=== PATIENT | female | born 1955 | race Caucasian/White ===

== ENCOUNTER → 2016-12-24 | Outpatient (CLI) | payer BC | LOC: OD 12:48 | PROVIDERS: ATTEND Physician Assistant | DX: J44.9 Chronic obstructive pulmonary disease, unspecified (principal) | CPT/HCPCS: 71020 ==

== ENCOUNTER 2017-07-21 15:37 | Inpatient (IN) | payer BC ==
[2017-07-21] MEDS ORDERED: METOCLOPRAMIDE HCL ORAL SOLN 10 MG/10 ML UDCUP PO ONE (17:12)
[2017-07-21] MEDS ORDERED: LIDOCAINE 2% VISCOUS SOLN 20 ML UDCUP PO ONE (17:12)
[2017-07-21] MEDS ORDERED: MAG HYDROX/AL HYDROX/SIMETH SUSP 30 ML UDCUP PO ONE (17:12)
--- NOTE | 2017-07-21 17:20 | ER Document Report ---
ED General - General Chief Complaint: Vomiting/Diarrhea Stated Complaint: VOMITING Time Seen by Provider: 07/21/17 17:10 Notes: This is a 61-year-old female patient presents emergency department chief complaint of having abdominal pain, vomiting, diarrhea with pain radiating up into her chest. Called her primary care doctor who advised her to come to the emergency department. Patient states that this all started yesterday. Noticed this morning when she vomited that it was black. Denies taking Pepto-Bismol. Usually she takes omeprazole and this helps with the reflux and burning epigastric pain but it did not help today. TRAVEL OUTSIDE OF THE [place] IN LAST 30 DAYS: No - Related Data Allergies/Adverse Reactions: codeine [Codeine] Allergy (Intermediate, Verified 10/03/15 11:24) PALE, UNABLE TO MOVE Penicillins Allergy (Intermediate, Verified 10/03/15 11:24) NAUSEA, VOMITING hydromorphone HCl [From Dilaudid] Allergy (Verified 11/22/14 09:12) nausea and itching Past Medical History - General Information source: Patient, Parent - Social History Smoking Status: Current Every Day Smoker Family History: Reviewed & Not Pertinent Patient has suicidal ideation: No Patient has homicidal ideation: No - Past Medical History Cardiac Medical History: Reports: Hx Heart Attack - QUESTIONABLE IRREGULAR HEARTBEAT VS MURMUR,EKG NEG, Hx Heart Murmur - HAD ECHO IN THE PAST IN 2013, EKG OBTAINED 04/2014 Denies: Hx Atrial Fibrillation, Hx Congestive Heart Failure, Hx Coronary Artery Disease, Hx Hypercholesterolemia, Hx Hypertension, Hx Peripheral Vascular Disease, Hx Pulmonary Embolism Pulmonary Medical History: Reports: Hx Asthma, Hx Bronchitis, Hx COPD Denies: Hx Pneumonia, Hx Respiratory Failure, Hx Sleep Apnea, Hx Tuberculosis Neurological Medical History: Denies: Hx Cerebrovascular Accident, Hx Seizures Renal/ Medical History: Denies: Hx Peritoneal Dialysis Malignancy Medical History: Denies: Hx Leukemia, Hx Lung Cancer GI Medical History: Reports: Hx Gastroesophageal Reflux Disease, Hx Hiatal Hernia - UNSURE. Denies: Hx Crohn's Disease, Hx Hepatitis, Hx Irritable Bowel, Hx Liver Failure, Hx Ulcer Musculoskeltal Medical History: Denies Hx Arthritis Psychiatric Medical History: Infectious Medical History: Denies: Hx Hepatitis, Hx HIV Past Surgical History: Reports: Hx Bowel Surgery - May 03. See old records., Hx Tonsillectomy - AGE 13. Denies: Hx Appendectomy, Hx Section, Hx Cholecystectomy, Hx Colostomy, Hx Coronary Artery Bypass Graft, Hx Gastric Bypass Surgery, Hx Herniorrhaphy, Hx Hysterectomy, Hx Mastectomy, Hx Open Heart Surgery, Hx Pacemaker, Hx Tubal Ligation - Immunizations Hx Diphtheria, Pertussis, Tetanus Vaccination: No Review of Systems - Review of Systems Constitutional: No symptoms reported EENT: No symptoms reported Cardiovascular: No symptoms reported, Chest pain Respiratory: No symptoms reported Gastrointestinal: No symptoms reported, Abdominal pain, Diarrhea, Nausea, Vomiting Genitourinary: No symptoms reported Female Genitourinary: No symptoms reported Musculoskeletal: No symptoms reported Skin: No symptoms reported Hematologic/Lymphatic: No symptoms reported Neurological/Psychological: No symptoms reported Physical Exam - Vital signs Vitals: Temp Pulse Resp BP Pulse Ox 99.0 F 83 18 102/77 96 07/21/17 16:00 07/21/17 16:00 07/21/17 16:00 07/21/17 16:00 07/21/17 16:00 Interpretation: Normal - General General appearance: Appears well, Alert - HEENT Head: Normocephalic, Atraumatic Eyes: Normal Pupils: PERRL - Respiratory Respiratory status: No respiratory distress Chest status: Nontender Breath sounds: Normal Chest palpation: Normal - Cardiovascular Rhythm: Regular Heart sounds: Normal auscultation Murmur: No Systolic murmur grade 1-6: 3 - Abdominal Inspection: Normal Distension: No distension Bowel sounds: Normal Tenderness: Nontender, Tender, Other - Mild diffuse abdominal tenderness Organomegaly: No organomegaly - Rectal Stool: Heme negative Hemorrhoids: None - Back Back: Normal, Nontender - Extremities General upper extremity: Normal inspection, Nontender, Normal color, Normal ROM , Normal temperature General lower extremity: Normal inspection, Nontender, Normal color, Normal ROM , Normal temperature, Normal weight bearing. No: Gurvinder's sign - Neurological Neuro grossly intact: Yes Cognition: Normal Orientation: AAOx4 [place] Coma Scale Eye Opening: Spontaneous Varsha Coma Scale Verbal: Oriented [place] Coma Scale Motor: Obeys Commands [place] Coma Scale Total: 15 Speech: Normal Motor strength normal: LUE, RUE, LLE, RLE Sensory: Normal - Psychological Associated symptoms: Normal affect, Normal mood - Skin Skin Temperature: Warm Skin Moisture: Dry Skin Color: Normal Course - Re-evaluation Re-evalutation: 07/21/17 18:40 This is a 61-year-old female with abdominal pain, vomiting with pain radiating up into her chest. Low-grade fever. Generally feeling ill. Patient seemed to have pain diffusely after initial evaluation. Now complaining of more pain in the right upper quadrant after CT scan has been ordered. We will ultrasound of the right upper quadrant as well as CT scan. Patient is drinking contrast at this time. Patient does have elevated CBC white count. Labs are pending at this time. 07/21/17 19:04 CT scan and ultrasound pending and at 1900 hrs. Patient signed over to Dr. Quijano for final disposition. - Vital Signs Vital signs: Temp Pulse Resp BP Pulse Ox 99.0 F 72 20 120/80 97 07/21/17 16:00 07/21/17 18:12 07/21/17 18:12 07/21/17 18:12 07/21/17 18:12 - Laboratory Result Diagrams: 07/21/17 17:47 07/21/17 17:47 Laboratory results interpreted by me: 07/21/17 07/21/17 07/21/17 17:30 17:47 17:47 WBC 16.1 H Absolute Neutrophils 12.2 H Absolute Monocytes 1.6 H Potassium 3.4 L Urine Protein 30 H Urine Glucose (UA) 150 H Urine Ketones 20 H Urine Urobilinogen 2.0 H Ur Leukocyte Esterase TRACE H - EKG Interpretation by Me EKG shows normal: Sinus rhythm, [place], Intervals, QRS Complexes, ST-T Waves Discharge - Discharge Referrals: SANDRA ALONZO MD [Primary Care Provider] - Follow up as needed
--- NOTE | 2017-07-21 17:37 | RADIOLOGY REPORT (SQ) ---
EXAM DESCRIPTION: CHEST SINGLE VIEW COMPLETED DATE/TIME: 07/21/2017 5:26 pm REASON FOR STUDY: sob COMPARISON: 12/24/2016 EXAM PARAMETERS: NUMBER OF VIEWS: One view. TECHNIQUE: Single frontal radiographic view of the chest acquired. RADIATION DOSE: NA LIMITATIONS: None. FINDINGS: LUNGS AND PLEURA: No opacities, masses or pneumothorax. No pleural effusion. MEDIASTINUM AND HILAR STRUCTURES: No masses. Contour normal. HEART AND VASCULAR STRUCTURES: Heart normal in size. Normal vasculature. BONES: No acute findings. HARDWARE: None in the chest. OTHER: No other significant finding. IMPRESSION: NO ACUTE RADIOGRAPHIC FINDING IN THE CHEST. TECHNICAL DOCUMENTATION: JOB ID: [id number]
[2017-07-21 18:04] LABS: APPEARANCE,URINE CLEAR; BILIRUBIN,URINE NEGATIVE (NEGATIVE); GLUCOSE, URINE 150 mg/dL (NEGATIVE); KETONES,URINE 20 mg/dL (NEGATIVE); LEUKOCYTE ESTERASE,URINE TRACE (NEGATIVE); NITRITE,URINE NEGATIVE (NEGATIVE); PROTEIN,URINE 30 mg/dL (NEGATIVE); URINE SPECIFIC GRAVITY 1.018
[2017-07-21 18:16] LABS: ABSOLUTE EOSINOPHILS # (AUTO) 0.1 10^3/uL (0.0-0.6); ABSOLUTE LYMPHOCYTES (AUTO) 2.2 10^3/uL (0.5-4.7); ABSOLUTE MONOCYTES (AUTO) 1.6 10^3/uL (0.1-1.4); ABSOLUTE NEUT (AUTO) 12.2 10^3/uL (1.7-8.2); BASOPHILS % (AUTO) 0.2 % (0-2); EOSINOPHILS % (AUTO) 0.4 % (0-6); HEMATOCRIT 40.8 % (36.0-47.0); HEMOGLOBIN 14.2 g/dL (12.0-15.5); HGB HCT DIFFERENCE 1.8; LYMPHOCYTES % (AUTO) 13.6 % (13-45); MEAN CORPUSCULAR HEMOGLOBIN 33.3 pg (27.0-33.4); MEAN CORPUSCULAR HGB CONC 34.8 g/dL (32.0-36.0); MEAN CORPUSCULAR VOLUME 96 fl (80-97); RED BLOOD COUNT 4.26 10^6/uL (3.72-5.28); RED CELL DISTRIBUTION WIDTH 12.7 % (11.5-14.0); SEGMENTED NEUTROPHILS % (AUTO) 75.8 % (42-78); WHITE BLOOD COUNT 16.1 10^3/uL (4.0-10.5)
[2017-07-21] MEDS ORDERED: FAMOTIDINE INJ/PF 20 MG/2 ML SDV IV ONE (18:29)
[2017-07-21] MEDS ORDERED: NORMAL SALINE 1000 ML 1,000 ML IV ONE (18:30)
[2017-07-21 18:37] LABS: ALANINE AMINOTRANSFERASE 32 U/L (9-52); ALBUMIN 4.5 g/dL (3.5-5.0); ALKALINE PHOSPHATASE 95 U/L (38-126); ANION GAP 16 (5-19); ASPARTATE AMINO TRANSFERASE 26 U/L (14-36); BILIRUBIN,DIRECT 0.4 mg/dL (0.0-0.4); BILIRUBIN,TOTAL 0.8 mg/dL (0.2-1.3); BLOOD UREA NITROGEN 15 mg/dL (7-20); CARBON DIOXIDE 29 mmol/L (22-30); CHLORIDE 99 mmol/L (98-107); CREATININE RESULT 0.72 mg/dL (0.52-1.25); GLUCOSE 103 mg/dL (75-110); LIPASE 175.7 U/L (23-300); POTASSIUM 3.4 mmol/L (3.6-5.0); SODIUM 143.5 mmol/L (137-145); TOTAL PROTEIN 7.1 g/dL (6.3-8.2)
[2017-07-21] MEDS ORDERED: MORPHINE SULFATE 10 MG/ML INJ IV ONE (18:39)
[2017-07-21] MEDS ORDERED: ONDANSETRON HCL INJ/PF 4 MG/2 ML SDV IV ONE (19:00)
--- NOTE | 2017-07-21 20:55 | RADIOLOGY REPORT (SQ) ---
EXAM DESCRIPTION: U/S ABDOMEN LIMITED W/O DOP COMPLETED DATE/TIME: 07/21/2017 8:43 pm REASON FOR STUDY: Right upper quadrant pain COMPARISON: None. TECHNIQUE: Dynamic and static grayscale images acquired of the abdomen and recorded on PACS. Additio nal selected color Doppler and spectral images recorded. LIMITATIONS: None. FINDINGS: PANCREAS: No masses. Visualized pancreatic duct normal caliber. LIVER: No masses. Echotexture normal. LIVER VASCULATURE: Normal directional flow of the main portal vein and hepatic veins. GALLBLADDER: Sludge. No gallbladder wall thickening. ULTRASOUND-DETECTED GTZ'S SIGN: Negative. INTRAHEPATIC DUCTS AND COMMON DUCT: CBD and intrahepatic ducts normal caliber. No filling defects. INFERIOR VENA CAVA: Normal flow. AORTA: Poorly seen. RIGHT KIDNEY: Normal size. Normal echogenicity. No solid or suspicious masses. No hydronephrosis. No calcifications. PERITONEAL AND RIGHT PLEURAL SPACE: Right effusion. OTHER: No other significant findings. IMPRESSION: Sludge in the gallbladder. Right pleural effusion. TECHNICAL DOCUMENTATION: JOB ID: [id number] [employer]- All Rights Reserved
--- NOTE | 2017-07-21 21:33 | RADIOLOGY REPORT (SQ) ---
EXAM DESCRIPTION: CT ABD/PELVIS WITH IV ORAL COMPLETED DATE/TIME: 07/21/2017 9:21 pm REASON FOR STUDY: abd pain COMPARISON: 05/19/2014 TECHNIQUE: CT scan of the abdomen and pelvis performed with intravenous and oral contrast using jerrica jiim scanning technique with dynamic intravenous contrast injection. Images reviewed with lung, soft t issue, and bone windows. Reconstructed coronal and sagittal MPR images reviewed. Delayed images for e valuation of the urinary system also acquired. All images stored on PACS. All CT scanners at this facility use dose modulation, iterative reconstruction, and/or weight based d osing when appropriate to reduce radiation dose to as low as reasonably achievable (ALARA). [facility]: Dose Right [facility]: CareDose [facility]: Dose Right [facility]: Teradose 4D [facility]: Achieved.co CONTRAST TYPE AND DOSE: contrast/concentration: Isovue 370.00 mg/ml; Total Contrast Delivered: 58.0 ml; Total Saline Delivered: 35.0 ml RENAL FUNCTION: GFR > 60. RADIATION DOSE: Up-to-date CT equipment and radiation dose reduction techniques were employed. CTDIv ol: 4.9 mGy. DLP: 495 mGy-cm. . LIMITATIONS: None. FINDINGS: LOWER CHEST: No significant findings. No nodules or infiltrates. No pleural effusion as s uspected on ultrasound appear LIVER: Normal size. No masses. No dilated ducts. SPLEEN: Normal size. No focal lesions. PANCREAS: No masses. No significant calcifications. No adjacent inflammation or peripancreatic fluid collections. Pancreatic duct not dilated. GALLBLADDER: No identified stones by CT criteria. No inflammatory changes to suggest cholecystitis. ADRENAL GLANDS: No significant masses or asymmetry. RIGHT KIDNEY AND URETER: No solid masses. No significant calcifications. No hydronephrosis or hyd roureter. LEFT KIDNEY AND URETER: No solid masses. No significant calcifications. No hydronephrosis or hydr oureter. AORTA AND VESSELS: No aneurysm. No dissection. Renal arteries, SMA, celiac without stenosis. RETROPERITONEUM: No retroperitoneal adenopathy, hemorrhage or masses. BOWEL AND PERITONEAL CAVITY: No obstruction. No visualized masses. No free fluid. No inflammatory ch anges or thickening of bowel wall. APPENDIX: Surgically absent. PELVIS: No significant masses. Normal bladder. No free fluid. ABDOMINAL WALL: No masses. No hernias. BONES: No significant or acute findings. OTHER: No other significant finding. IMPRESSION: NO SIGNIFICANT OR ACUTE FINDINGS IN THE ABDOMEN OR PELVIS. TECHNICAL DOCUMENTATION: JOB ID: [id number] Quality ID # [id number]: Final reports with documentation of one or more dose reduction techniques (e.g., Au tomated exposure control, adjustment of the mA and/or kV according to patient size, use of iterative reconstruction technique) 2010 [employer]- All Rights Reserved
[2017-07-21] MEDS ORDERED: IPRATROPIUM/ALBUTEROL 0.5-2.5 MG/3 ML AMPUL NEB PRN (23:02)
[2017-07-21] MEDS ORDERED: LEVOFLOXACIN 500 MG/D5W RTU 500 MG/100 ML RTUPB IV ONE (23:07)
[2017-07-22 00:22] LABS: CREATINE KINASE MB 2.49 ng/mL (<4.55)
[2017-07-22 00:26] LABS: TROPONIN I < 0.012 ng/mL
[2017-07-22] MEDS: ACETAMINOPHEN 325 MG TABLET PO PRN (03:37)
[2017-07-22] MEDS: ONDANSETRON HCL INJ/PF 4 MG/2 ML SDV IV PRN (03:37)
--- NOTE | 2017-07-22 07:02 | PDOC H&P ---
History of Present Illness Admission Date/PCP: 07/21/17 23:02 SANDRA PRITCHETT MD Patient complains of: Abdominal pain nausea vomiting History of Present Illness: JIHAN VAUGHN is a 61 year old female with acute onset abdominal pain, nausea vomiting and diarrhea 3 days ago after [facility] which is her usual Friday afternoon meal. She became weak, with persisting diarrhea over the next 48 hours. The patient sought medical care with Dr. Pritchett who sent her to the emergency department where she underwent CT scan of the abdomen and pelvis which was fairly unremarkable. She then had a bladder ultrasound which showed sludge; trace right pleural effusion was noted. She was simultaneously ruled out for an acute cardiovascular and pulmonary event. She will CPK was elevated. She was admitted overnight for observation and rehydration. Surgery was consulted. Past Medical History Cardiac Medical History: Reports: Myocardial Infarction - QUESTIONABLE IRREGULAR HEARTBEAT VS MURMUR,EKG NEG, Heart Murmur - HAD ECHO IN THE PAST IN 2013, EKG OBTAINED 04/2014 Denies: Atrial Fibrillation, Congestive Heart Failure, Coronary Artery Disease, Hyperlipidema, Hypertension, Peripheral Vascular Disease, Pulmonary Embolism Pulmonary Medical History: Reports: Asthma, Bronchitis, Chronic Obstructive Pulmonary Disease (COPD) Denies: Pneumonia, Respiratory Failure, Sleep Apnea, Tuberculosis Neurological Medical History: Denies: Seizures Malignancy Medical History: Denies: Leukemia, Lung Cancer GI Medical History: Reports: Gastroesophageal Reflux Disease, Hiatal Hernia - UNSURE Denies: Crohn's Disease, Hepatitis Musculoskeltal Medical History: Denies: Arthritis Psychiatric Medical History: Denies: Depression Hematology: Reports: Anemia Denies: Hemophilia, Sickle Cell Disease Infectious Medical History: Denies: HIV Past Surgical History Past Surgical History: Reports: Tonsillectomy - AGE 13, Other - Right hemicolectomy, Dr. Mendez, 2013: Pilonidal cystectomy: Nasal septum terri Denies: Amputation, Appendectomy, Section, Cholecystectomy, Colostomy, Coronary Artery Bypass Graft, Gastric Bypass Surgery, Herniorrhaphy, Hysterectomy, Mastectomy, Pacemaker, Tubal Ligation Social History Smoking Status: Current Every Day Smoker Cigarettes Packs Per Day: 2 Last Time Smoked: July 19, 2017 Frequency of Alcohol Use: None Hx Recreational Drug Use: No Drugs: None Hx Prescription Drug Abuse: No Family History Family History: Reviewed & Not Pertinent Parental Family History Reviewed: Yes Children Family History Reviewed: Yes Sibling(s) Family History Reviewed.: Yes Medication/Allergy Home Medications: Tiotropium [employer] [Spiriva Handihaler 18 mcg/dose (30 Dose)] 1 cap IH DAILY Budesonide/Formoterol Fumarate [Symbicort HFA 160-4.5 mcg Inhaler 6 gm] 2 puff IH Q12 02/23/14 Albuterol Sulfate [Albuterol Sulfate Hfa] 1 - 2 puff IH Q4 PRN 11/18/14 Esomeprazole Magnesium [Nexium] 40 mg PO DAILY 11/18/14 Ibuprofen 2 tab PO ASDIR PRN 10/03/15 Allergies/Adverse Reactions: codeine [Codeine] Allergy (Intermediate, Verified 10/03/15 11:24) PALE, UNABLE TO MOVE Penicillins Allergy (Intermediate, Verified 10/03/15 11:24) NAUSEA, VOMITING hydromorphone HCl [From Dilaudid] Allergy (Verified 11/22/14 09:12) nausea and itching Review of Systems Constitutional: PRESENT: as per HPI Eyes: ABSENT: visual disturbances Ears: ABSENT: hearing changes Cardiovascular: PRESENT: other - Has had epigastric chest pain Gastrointestinal: PRESENT: other - Last colonoscopy within the past year, surveillance, Dr. Varela, normal Integumentary: ABSENT: rash, wounds Neurological: ABSENT: abnormal gait, abnormal speech, confusion, dizziness, focal weakness, syncope Physical Exam Vital Signs: Temp Pulse Resp BP Pulse Ox 98.5 F 58 L 17 99/61 L 88 L 07/22/17 05:08 07/22/17 05:08 07/22/17 03:27 07/22/17 05:08 07/22/17 05:08 Intake & Output 07/20/17 07/21/17 07/22/17 06:59 06:59 06:59 Weight 56 kg General appearance: PRESENT: no acute distress Head exam: PRESENT: normocephalic Eye exam: PRESENT: EOMI Ear exam: PRESENT: TM's normal bilaterally Mouth exam: PRESENT: dry mucosa Neck exam: PRESENT: full ROM Respiratory exam: PRESENT: clear to auscultation be Cardiovascular exam: PRESENT: RRR Pulses: PRESENT: +2 pedal pulses bilateral GI/Abdominal exam: PRESENT: other - Abdomen is soft, nontender no peritoneal signs no rigidity no organomegaly Rectal exam: PRESENT: deferred Extremities exam: PRESENT: full ROM Musculoskeletal exam: PRESENT: full ROM Neurological exam: PRESENT: alert, awake, oriented to person, oriented to place Psychiatric exam: PRESENT: anxious Results Laboratory Results: 07/21/17 07/21/17 23:41 23:41 Creatine Kinase 223 H CK-MB (CK-2) 2.49 Troponin I < 0.012 Impressions: Abdomen/Pelvis CT 07/21/17 00:00 IMPRESSION: NO SIGNIFICANT OR ACUTE FINDINGS IN THE ABDOMEN OR PELVIS. Chest X-Ray 07/21/17 17:13 IMPRESSION: NO ACUTE RADIOGRAPHIC FINDING IN THE CHEST. Abdomen Ultrasound 07/21/17 18:41 IMPRESSION: Sludge in the gallbladder. Right pleural effusion. Assessment & Plan - Diagnosis (1) Abdominal pain Is this a current diagnosis for this admission?: Yes Plan: Associated with diarrhea nausea and vomiting; resultant diarrhea, leukocytosis ketonuria. Patient being rehydrated. Suspect principal problem is viral gastroenteritis. Recommend current workup and treatment (2) Sludge in gallbladder Is this a current diagnosis for this admission?: Yes Plan: Likely incidental finding; no evidence of cholecystitis. At this point I do not think patient needs interval cholecystectomy. We will follow with you clinically. (3) Diarrhea Is this a current diagnosis for this admission?: Yes - Time Time Spent: 30 to 50 Minutes Smoking Cessation Education: 3 to 10 minutes - Inpatient Certification Medical Necessity: Need For IV Fluids, Need for IV Antibiotics
[2017-07-22] MEDS: LANSOPRAZOLE 15 MG TAB.RAP.DR PO SCH (07:05)
[2017-07-22] MEDS: NORMAL SALINE 1000 ML 1,000 ML IV PRN (07:07)
[2017-07-22 07:10] LABS: ABSOLUTE EOSINOPHILS # (AUTO) 0.1 10^3/uL (0.0-0.6); ABSOLUTE LYMPHOCYTES (AUTO) 2.3 10^3/uL (0.5-4.7); ABSOLUTE MONOCYTES (AUTO) 1.2 10^3/uL (0.1-1.4); ABSOLUTE NEUT (AUTO) 8.3 10^3/uL (1.7-8.2); BASOPHILS % (AUTO) 0.3 % (0-2); EOSINOPHILS % (AUTO) 0.9 % (0-6); HEMATOCRIT 36.7 % (36.0-47.0); HEMOGLOBIN 12.8 g/dL (12.0-15.5); HGB HCT DIFFERENCE 1.7; LYMPHOCYTES % (AUTO) 19.1 % (13-45); MEAN CORPUSCULAR HEMOGLOBIN 33.6 pg (27.0-33.4); MEAN CORPUSCULAR HGB CONC 34.9 g/dL (32.0-36.0); MEAN CORPUSCULAR VOLUME 96 fl (80-97); MONOCYTES % (AUTO) 10.4 % (3-13); RED BLOOD COUNT 3.82 10^6/uL (3.72-5.28); SEGMENTED NEUTROPHILS % (AUTO) 69.3 % (42-78); WHITE BLOOD COUNT 11.9 10^3/uL (4.0-10.5)
[2017-07-22 07:29] LABS: ALANINE AMINOTRANSFERASE 36 U/L (9-52); ALBUMIN 3.8 g/dL (3.5-5.0); ALKALINE PHOSPHATASE 64 U/L (38-126); ANION GAP 13 (5-19); ASPARTATE AMINO TRANSFERASE 23 U/L (14-36); BILIRUBIN,DIRECT 0.4 mg/dL (0.0-0.4); BILIRUBIN,TOTAL 0.7 mg/dL (0.2-1.3); BLOOD UREA NITROGEN 10 mg/dL (7-20); CALCIUM 9.4 mg/dL (8.4-10.2); CARBON DIOXIDE 27 mmol/L (22-30); CHLORIDE 102 mmol/L (98-107); CREATINE KINASE 229 U/L (30-135); CREATININE RESULT 0.67 mg/dL (0.52-1.25); GLUCOSE 103 mg/dL (75-110); POTASSIUM 3.2 mmol/L (3.6-5.0); SODIUM 142.2 mmol/L (137-145)
[2017-07-22 07:40] LABS: CREATINE KINASE MB 2.87 ng/mL (<4.55)
[2017-07-22 07:42] LABS: TROPONIN I < 0.012 ng/mL
--- NOTE | 2017-07-22 08:15 | EKG REPORT ---
SEVERITY:- NORMAL ECG - SINUS RHYTHM : Confirmed by: Juan Osorio MD 22-Jul-2017 08:13:48
[2017-07-22] MEDS ORDERED: POTASSIUM CHLORIDE 10 MEQ TABLET.SA PO ONE (08:45)
[2017-07-22] MEDS: ENOXAPARIN SODIUM INJ 40 MG/0.4 ML DISP.SYRIN SUBCUT SCH (09:02)
[2017-07-22] MEDS: MAG HYDROX/AL HYDROX/SIMETH SUSP 30 ML UDCUP PO PRN ×2 (12:48→18:29)
--- NOTE | 2017-07-22 13:45 | PDOC H&P ---
History of Present Illness Admission Date/PCP: 07/21/17 23:02 SANDRA PRITCHETT MD Patient complains of: Abdominal pain and nausea and vomiting History of Present Illness: JIHAN VAUGHN is a 61 year old female with acute onset abdominal pain, nausea vomiting and diarrhea 3 days ago after having a tuna sandwich from [facility] which is her usual Friday afternoon meal. She became weak, with persisting diarrhea over the next 48 hours. The patient sought medical care with Dr. Pritchett who sent her to the emergency department where she underwent CT scan of the abdomen and pelvis which was fairly unremarkable. She then had a bladder ultrasound which showed sludge; trace right pleural effusion was noted. She was simultaneously ruled out for an acute cardiovascular and pulmonary event. She will CPK was elevated. She was admitted overnight for observation and rehydration. Patient initially came in the office with a complaint of at this epigastric pain and right upper quadrant pain to and patient have a history of abdominal pain in the past Patient also have a colonoscopy was done last year by Dr. Varela Past Medical History Cardiac Medical History: Reports: Myocardial Infarction - QUESTIONABLE IRREGULAR HEARTBEAT VS MURMUR,EKG NEG, Heart Murmur - HAD ECHO IN THE PAST IN 2013, EKG OBTAINED 04/2014 Denies: Atrial Fibrillation, Congestive Heart Failure, Coronary Artery Disease, Hyperlipidema, Hypertension, Peripheral Vascular Disease, Pulmonary Embolism Pulmonary Medical History: Reports: Asthma, Bronchitis, Chronic Obstructive Pulmonary Disease (COPD) Denies: Pneumonia, Respiratory Failure, Sleep Apnea, Tuberculosis Neurological Medical History: Denies: Seizures Malignancy Medical History: Denies: Leukemia, Lung Cancer GI Medical History: Reports: Gastroesophageal Reflux Disease, Hiatal Hernia - UNSURE Denies: Crohn's Disease, Hepatitis Musculoskeltal Medical History: Denies: Arthritis Psychiatric Medical History: Denies: Depression Hematology: Reports: Anemia Denies: Hemophilia, Sickle Cell Disease Infectious Medical History: Denies: HIV Past Surgical History Past Surgical History: Reports: Tonsillectomy - AGE 13, Other - Right hemicolectomy, Dr. Mendez, 2013: Pilonidal cystectomy: Nasal septum terri Denies: Amputation, Appendectomy, Section, Cholecystectomy, Colostomy, Coronary Artery Bypass Graft, Gastric Bypass Surgery, Herniorrhaphy, Hysterectomy, Mastectomy, Pacemaker, Tubal Ligation Social History Smoking Status: Current Every Day Smoker Cigarettes Packs Per Day: 2 Last Time Smoked: July 19, 2017 Frequency of Alcohol Use: None Hx Recreational Drug Use: No Drugs: None Hx Prescription Drug Abuse: No Family History Family History: Reviewed & Not Pertinent Parental Family History Reviewed: Yes Children Family History Reviewed: Yes Sibling(s) Family History Reviewed.: Yes Medication/Allergy Home Medications: Ibuprofen [Ibuprofen Ib] 400 mg PO ASDIR PRN 07/22/17 Omeprazole 20 mg PO DAILY 07/22/17 Allergies/Adverse Reactions: codeine [Codeine] Allergy (Intermediate, Verified 10/03/15 11:24) PALE, UNABLE TO MOVE Penicillins Allergy (Intermediate, Verified 10/03/15 11:24) NAUSEA, VOMITING hydromorphone HCl [From Dilaudid] Allergy (Verified 11/22/14 09:12) nausea and itching Review of Systems Constitutional: ABSENT: chills, fever(s), headache(s), weight gain, weight loss Eyes: ABSENT: visual disturbances Ears: ABSENT: hearing changes Cardiovascular: ABSENT: chest pain, dyspnea on exertion, edema, orthropnea, palpitations Respiratory: ABSENT: cough, hemoptysis Gastrointestinal: PRESENT: abdominal pain, coffee ground emesis, diarrhea, nausea, vomiting. ABSENT: constipation, hematemesis, hematochezia Genitourinary: ABSENT: dysuria, hematuria Musculoskeletal: ABSENT: joint swelling Integumentary: ABSENT: rash, wounds Neurological: ABSENT: abnormal gait, abnormal speech, confusion, dizziness, focal weakness, syncope Psychiatric: ABSENT: anxiety, depression, homidical ideation, suicidal ideation Endocrine: ABSENT: cold intolerance, heat intolerance, menstrual abnormalities, polydipsia, polyuria Hematologic/Lymphatic: ABSENT: easy bleeding, easy bruising, lymphadenopathy Physical Exam Vital Signs: Temp Pulse Resp BP Pulse Ox 97.9 F 60 18 118/61 96 07/22/17 11:58 07/22/17 11:58 07/22/17 11:58 07/22/17 11:58 07/22/17 11:58 Intake & Output 07/21/17 07/22/17 07/23/17 06:59 06:59 06:59 Intake Total 150 237 Balance 150 237 Weight 56 kg General appearance: PRESENT: no acute distress, well-developed, well-nourished Head exam: PRESENT: atraumatic, normocephalic Eye exam: PRESENT: conjunctiva pink, EOMI, PERRLA. ABSENT: scleral icterus Ear exam: PRESENT: normal external ear exam Mouth exam: PRESENT: moist, tongue midline Neck exam: PRESENT: full ROM. ABSENT: carotid bruit, JVD, lymphadenopathy, thyromegaly Respiratory exam: PRESENT: clear to auscultation be Cardiovascular exam: PRESENT: RRR. ABSENT: diastolic murmur, rubs, systolic murmur Pulses: PRESENT: normal dorsalis pedis pul, +2 pedal pulses bilateral Vascular exam: PRESENT: normal capillary refill GI/Abdominal exam: PRESENT: normal bowel sounds, soft. ABSENT: distended, guarding, mass, organolmegaly, rebound, tenderness Rectal exam: PRESENT: deferred Extremities exam: ABSENT: pedal edema Musculoskeletal exam: PRESENT: ambulatory Neurological exam: PRESENT: alert, awake, oriented to person, oriented to place , oriented to time, oriented to situation, CN II-XII grossly intact. ABSENT: motor sensory deficit Psychiatric exam: PRESENT: appropriate affect, normal mood. ABSENT: homicidal ideation, suicidal ideation Skin exam: PRESENT: dry, intact, warm. ABSENT: cyanosis, rash Results Laboratory Results: 07/22/17 06:27 07/22/17 06:27 07/22/17 07/22/17 07/22/17 06:27 06:27 08:27 WBC 11.9 H RBC 3.82 Hgb 12.8 Hct 36.7 MCV 96 MCH 33.6 H MCHC 34.9 RDW 13.0 Plt Count 275 Seg Neutrophils % 69.3 Lymphocytes % 19.1 Monocytes % 10.4 Eosinophils % 0.9 Basophils % 0.3 Absolute Neutrophils 8.3 H Absolute Lymphocytes 2.3 Absolute Monocytes 1.2 Absolute Eosinophils 0.1 Absolute Basophils 0.0 Sodium 142.2 Potassium 3.2 L Chloride 102 Carbon Dioxide 27 Anion Gap 13 BUN 10 Creatinine 0.67 Est GFR ( Amer) > 60 Est GFR (Non-Af Amer) > 60 Glucose 103 Calcium 9.4 Total Bilirubin 0.7 AST 23 ALT 36 Alkaline Phosphatase 64 Total Protein 6.0 L Albumin 3.8 Stool Occult Blood POSITIVE Stool for White Cells 07/22/17 08:27 WBC RBC Hgb Hct MCV MCH MCHC RDW Plt Count Seg Neutrophils % Lymphocytes % Monocytes % Eosinophils % Basophils % Absolute Neutrophils Absolute Lymphocytes Absolute Monocytes Absolute Eosinophils Absolute Basophils Sodium Potassium Chloride Carbon Dioxide Anion Gap BUN Creatinine Est GFR ( Amer) Est GFR (Non-Af Amer) Glucose Calcium Total Bilirubin AST ALT Alkaline Phosphatase Total Protein Albumin Stool Occult Blood Stool for White Cells NO WBCs SEEN 07/21/17 07/21/17 07/22/17 23:41 23:41 06:27 Creatine Kinase 223 H 229 H CK-MB (CK-2) 2.49 Troponin I < 0.012 07/22/17 06:27 Creatine Kinase CK-MB (CK-2) 2.87 Troponin I < 0.012 Impressions: Abdomen/Pelvis CT 07/21/17 00:00 IMPRESSION: NO SIGNIFICANT OR ACUTE FINDINGS IN THE ABDOMEN OR PELVIS. Chest X-Ray 07/21/17 17:13 IMPRESSION: NO ACUTE RADIOGRAPHIC FINDING IN THE CHEST. Abdomen Ultrasound 07/21/17 18:41 IMPRESSION: Sludge in the gallbladder. Right pleural effusion. Assessment & Plan - Diagnosis (1) Diarrhea Qualifiers: Diarrhea type: unspecified type Qualified Code(s): R19.7 - Diarrhea, unspecified Is this a current diagnosis for this admission?: Yes Plan: Will check for the stool for the C. difficile and culture and (2) Sludge in gallbladder Is this a current diagnosis for this admission?: Yes Plan: Follow with the general surgery (3) Abdominal pain Qualifiers: Abdominal location: unspecified location Qualified Code(s): R10.9 - Unspecified abdominal pain Is this a current diagnosis for this admission?: Yes Plan: Most likely a possible viral gastroenteritis (4) COPD (chronic obstructive pulmonary disease) Qualifiers: Emphysema type: unspecified Is this a current diagnosis for this admission?: Yes Plan: Continues to DuoNeb nebulizer (5) Leukocytosis Qualifiers: Leukocytosis type: unspecified Qualified Code(s): D72.829 - Elevated white blood cell count, unspecified Is this a current diagnosis for this admission?: Yes Plan: Possible underlying pleural effusion as per described in the CT abdomen and pelvis we get the CT of the chest to rule out the other etiology and get the blood culture urine culture and start the patient on the Levaquin (6) GERD (gastroesophageal reflux disease) Qualifiers: Esophagitis presence: without esophagitis Qualified Code(s): K21.9 - Gastro -esophageal reflux disease without esophagitis Is this a current diagnosis for this admission?: Yes Plan: Continues to PPI while patient is complaining of a lot of epigastric pains and the burning sensations with this ongoing problem consult GI for further evaluations - Time Time Spent: 30 to 50 Minutes Medications reviewed and adjusted accordingly: Yes Anticipated discharge: Home Within: Other - Inpatient Certification Medical Necessity: Need Close Monitoring Due to Risk of Patient Decompensation, Need For IV Fluids, Need for IV Antibiotics Post Hospital Care: D/C Manager Editorial Documentation - Plan Summary Plan Summary: Continues to current medications discussed with the patient about the all the blood work and the CT scan report
[2017-07-22 14:52] LABS: CREATINE KINASE MB 3.48 ng/mL (<4.55)
[2017-07-22 14:56] LABS: TROPONIN I < 0.012 ng/mL
--- NOTE | 2017-07-22 15:27 | PDOC CONSULTATION ---
Consultation Consult Date: 07/22/17 Attending physician:: ELVI GLOVER Consult reason:: abdominal pain, nausea and vomiting History of Present Illness Admission Date/PCP: 07/21/17 23:02 SANDRA ALONZO MD History of Present Illness: I am asked to see this patient by Dr Alonzo patient had been seen in the past has COPD recently noted to have possible gastroenteritis was admitted for dehydration pain is persistent surgery saw the patient, has gallbladder sludge on ultrasound was felt not to be the cause of her pain she has had EGD in the past but it has been several years Dr Alonzo has asked to see if a repeat EGD could be done to rule out for possible peptic ulcer disease patient states has epigastric discomfort nausea and vomiting not as bad there is no melena patient denies any early satiety she does have a personal history of colon polyps in the past, it was too large to be removed with colonoscopy and had surgical resection of that she is due for surveillance in 2018, she did require Propofol sedation in the past Past Medical History Cardiac Medical History: Reports: Myocardial Infarction - QUESTIONABLE IRREGULAR HEARTBEAT VS MURMUR,EKG NEG, Heart Murmur - HAD ECHO IN THE PAST IN 2013, EKG OBTAINED 04/2014 Denies: Atrial Fibrillation, Congestive Heart Failure, Coronary Artery Disease, Hyperlipidema, Hypertension, Peripheral Vascular Disease, Pulmonary Embolism Pulmonary Medical History: Reports: Asthma, Bronchitis, Chronic Obstructive Pulmonary Disease (COPD) Denies: Pneumonia, Respiratory Failure, Sleep Apnea, Tuberculosis Neurological Medical History: Denies: Seizures Malignancy Medical History: Denies: Leukemia, Lung Cancer GI Medical History: Reports: Gastroesophageal Reflux Disease, Hiatal Hernia - UNSURE Denies: Crohn's Disease, Hepatitis Musculoskeltal Medical History: Denies: Arthritis Psychiatric Medical History: Denies: Depression Hematology: Reports: Anemia Denies: Hemophilia, Sickle Cell Disease Infectious Medical History: Denies: HIV Past Surgical History Past Surgical History: Reports: Tonsillectomy - AGE 13, Other - Right hemicolectomy, Dr. Mendez, 2013: Pilonidal cystectomy: Nasal septum terri Denies: Amputation, Appendectomy, Section, Cholecystectomy, Colostomy, Coronary Artery Bypass Graft, Gastric Bypass Surgery, Herniorrhaphy, Hysterectomy, Mastectomy, Pacemaker, Tubal Ligation Social History Smoking Status: Current Every Day Smoker Cigarettes Packs Per Day: 2 Last Time Smoked: July 19, 2017 Frequency of Alcohol Use: None Hx Recreational Drug Use: No Drugs: None Hx Prescription Drug Abuse: No Family History Family History: Reviewed & Not Pertinent Parental Family History Reviewed: Yes Children Family History Reviewed: Unknown Sibling(s) Family History Reviewed.: Unknown Medication/Allergy Home Medications: Ibuprofen [Ibuprofen Ib] 400 mg PO ASDIR PRN 07/22/17 Omeprazole 20 mg PO DAILY 07/22/17 Allergies/Adverse Reactions: codeine [Codeine] Allergy (Intermediate, Verified 10/03/15 11:24) PALE, UNABLE TO MOVE Penicillins Allergy (Intermediate, Verified 10/03/15 11:24) NAUSEA, VOMITING hydromorphone HCl [From Dilaudid] Allergy (Verified 11/22/14 09:12) nausea and itching Review of Systems Constitutional: ABSENT: fever(s), headache(s), night sweats, weakness Eyes: ABSENT: visual disturbances Ears: ABSENT: hearing changes Nose, Mouth, and Throat: ABSENT: mouth pain, sore throat Cardiovascular: ABSENT: chest pain, orthropnea, palpitations Respiratory: ABSENT: dyspnea, hemoptysis Gastrointestinal: PRESENT: abdominal pain, diarrhea, nausea, vomiting. ABSENT: hematemesis, melena Genitourinary: ABSENT: dysuria, hematuria Musculoskeletal: ABSENT: deformity, joint swelling Integumentary: ABSENT: lesions Neurological: ABSENT: syncope, tingling, tremor(s), vertigo Endocrine: ABSENT: polydipsia, polyphagia, polyuria Hematologic/Lymphatic: ABSENT: easy bruising Physical Exam Vital Signs: Temp Pulse Resp BP Pulse Ox 97.9 F 63 18 118/61 96 07/22/17 11:58 07/22/17 14:00 07/22/17 11:58 07/22/17 11:58 07/22/17 11:58 Intake & Output 07/21/17 07/22/17 07/23/17 06:59 06:59 06:59 Intake Total 150 237 Balance 150 237 Weight 56 kg General appearance: PRESENT: mild distress, thin Head exam: PRESENT: atraumatic, normocephalic Eye exam: PRESENT: EOMI, PERRLA. ABSENT: nystagmus, periorbital swelling, scleral icterus Mouth exam: PRESENT: moist Throat exam: ABSENT: tonsillar exudate, tonsillogmegaly Neck exam: ABSENT: meningismus, tenderness, thyromegaly Respiratory exam: PRESENT: symmetrical, unlabored. ABSENT: chest wall tenderness, tachypnea, wheezes Cardiovascular exam: PRESENT: RRR, +S1, +S2 GI/Abdominal exam: PRESENT: soft. ABSENT: rebound, rigid, tenderness Extremities exam: ABSENT: joint swelling Musculoskeletal exam: PRESENT: full ROM Neurological exam: PRESENT: alert, awake, oriented to time, oriented to situation Psychiatric exam: PRESENT: appropriate affect Skin exam: PRESENT: normal color. ABSENT: mottled, pallor, petechiae, urticaria , vesicles Results Laboratory Results: 07/22/17 06:27 07/22/17 06:27 07/22/17 07/22/17 07/22/17 06:27 06:27 08:27 WBC 11.9 H RBC 3.82 Hgb 12.8 Hct 36.7 MCV 96 MCH 33.6 H MCHC 34.9 RDW 13.0 Plt Count 275 Seg Neutrophils % 69.3 Lymphocytes % 19.1 Monocytes % 10.4 Eosinophils % 0.9 Basophils % 0.3 Absolute Neutrophils 8.3 H Absolute Lymphocytes 2.3 Absolute Monocytes 1.2 Absolute Eosinophils 0.1 Absolute Basophils 0.0 Sodium 142.2 Potassium 3.2 L Chloride 102 Carbon Dioxide 27 Anion Gap 13 BUN 10 Creatinine 0.67 Est GFR ( Amer) > 60 Est GFR (Non-Af Amer) > 60 Glucose 103 Calcium 9.4 Total Bilirubin 0.7 AST 23 ALT 36 Alkaline Phosphatase 64 Total Protein 6.0 L Albumin 3.8 Stool Occult Blood POSITIVE Stool for White Cells 07/22/17 08:27 WBC RBC Hgb Hct MCV MCH MCHC RDW Plt Count Seg Neutrophils % Lymphocytes % Monocytes % Eosinophils % Basophils % Absolute Neutrophils Absolute Lymphocytes Absolute Monocytes Absolute Eosinophils Absolute Basophils Sodium Potassium Chloride Carbon Dioxide Anion Gap BUN Creatinine Est GFR ( Amer) Est GFR (Non-Af Amer) Glucose Calcium Total Bilirubin AST ALT Alkaline Phosphatase Total Protein Albumin Stool Occult Blood Stool for White Cells NO WBCs SEEN 07/21/17 07/21/17 07/22/17 23:41 23:41 06:27 Creatine Kinase 223 H 229 H CK-MB (CK-2) 2.49 Troponin I < 0.012 07/22/17 07/22/17 07/22/17 06:27 13:50 13:50 Creatine Kinase 229 H CK-MB (CK-2) 2.87 3.48 Troponin I < 0.012 < 0.012 Impressions: Abdomen/Pelvis CT 07/21/17 00:00 IMPRESSION: NO SIGNIFICANT OR ACUTE FINDINGS IN THE ABDOMEN OR PELVIS. Chest X-Ray 07/21/17 17:13 IMPRESSION: NO ACUTE RADIOGRAPHIC FINDING IN THE CHEST. Abdomen Ultrasound 07/21/17 18:41 IMPRESSION: Sludge in the gallbladder. Right pleural effusion. Assessment & Plan - Diagnosis (1) Diarrhea Qualifiers: Diarrhea type: unspecified type Qualified Code(s): R19.7 - Diarrhea, unspecified Is this a current diagnosis for this admission?: Yes Plan: could be due to gastroenteritis continue hydration and conservative management (2) GERD (gastroesophageal reflux disease) Qualifiers: Esophagitis presence: without esophagitis Qualified Code(s): K21.9 - Gastro -esophageal reflux disease without esophagitis Is this a current diagnosis for this admission?: Yes Plan: accompanied by abdominal pain could have peptic ulcer disease Risks, benefits and alternatives are discussed with the patient in detail further recommendations to follow she would likely need Propofol sedation (3) Abdominal pain Qualifiers: Abdominal location: unspecified location Qualified Code(s): R10.9 - Unspecified abdominal pain Is this a current diagnosis for this admission?: Yes Plan: has gallbladder sludge and surgery has seen feels that her current symptoms are not consistent with gallbladder disease (4) Colon polyp Plan: required surgical resection in the past has had surveillance colonoscopy due next year - Time Time Spent: 50 to 70 Minutes
--- NOTE | 2017-07-22 19:26 | PDOC PROGRESS REPORT ---
Subjective Progress Note for:: 07/22/17 Subjective:: Minimal generalized abdominal pains Physical Exam Vital Signs: Temp Pulse Resp BP Pulse Ox 97.8 F 63 18 102/58 L 93 07/22/17 15:47 07/22/17 16:20 07/22/17 16:20 07/22/17 15:47 07/22/17 16:20 Intake & Output 07/21/17 07/22/17 07/23/17 06:59 06:59 06:59 Intake Total 150 1114 Balance 150 1114 Weight 56 kg Exam: Abdomen is soft and minimal tenderness the lower abdomen area. No tenderness of the right upper quadrant area Results Laboratory Results: 07/22/17 06:27 07/22/17 06:27 07/22/17 07/22/17 07/22/17 06:27 06:27 08:27 WBC 11.9 H RBC 3.82 Hgb 12.8 Hct 36.7 MCV 96 MCH 33.6 H MCHC 34.9 RDW 13.0 Plt Count 275 Seg Neutrophils % 69.3 Lymphocytes % 19.1 Monocytes % 10.4 Eosinophils % 0.9 Basophils % 0.3 Absolute Neutrophils 8.3 H Absolute Lymphocytes 2.3 Absolute Monocytes 1.2 Absolute Eosinophils 0.1 Absolute Basophils 0.0 Sodium 142.2 Potassium 3.2 L Chloride 102 Carbon Dioxide 27 Anion Gap 13 BUN 10 Creatinine 0.67 Est GFR ( Amer) > 60 Est GFR (Non-Af Amer) > 60 Glucose 103 Calcium 9.4 Total Bilirubin 0.7 AST 23 ALT 36 Alkaline Phosphatase 64 Total Protein 6.0 L Albumin 3.8 Stool Occult Blood POSITIVE Stool for White Cells 07/22/17 08:27 WBC RBC Hgb Hct MCV MCH MCHC RDW Plt Count Seg Neutrophils % Lymphocytes % Monocytes % Eosinophils % Basophils % Absolute Neutrophils Absolute Lymphocytes Absolute Monocytes Absolute Eosinophils Absolute Basophils Sodium Potassium Chloride Carbon Dioxide Anion Gap BUN Creatinine Est GFR ( Amer) Est GFR (Non-Af Amer) Glucose Calcium Total Bilirubin AST ALT Alkaline Phosphatase Total Protein Albumin Stool Occult Blood Stool for White Cells NO WBCs SEEN 07/21/17 07/21/17 07/22/17 23:41 23:41 06:27 Creatine Kinase 223 H 229 H CK-MB (CK-2) 2.49 Troponin I < 0.012 07/22/17 07/22/17 07/22/17 06:27 13:50 13:50 Creatine Kinase 229 H CK-MB (CK-2) 2.87 3.48 Troponin I < 0.012 < 0.012 Impressions: Abdomen/Pelvis CT 07/21/17 00:00 IMPRESSION: NO SIGNIFICANT OR ACUTE FINDINGS IN THE ABDOMEN OR PELVIS. Chest X-Ray 07/21/17 17:13 IMPRESSION: NO ACUTE RADIOGRAPHIC FINDING IN THE CHEST. Abdomen Ultrasound 07/21/17 18:41 IMPRESSION: Sludge in the gallbladder. Right pleural effusion. Assessment & Plan - Diagnosis (1) Gastroenteritis Is this a current diagnosis for this admission?: Yes - Time Time Spent with patient: 15-24 minutes - Plan Summary Plan Summary: Gradually increase her diet to a low-fat diet because of present presence of sludge in the gallbladder. Her diarrhea appears to been resolved. The IV fluids can be further deep decrease or stop at this time Patient can be followed up in the surgical clinic for the presence of sludge in the gallbladder. Dietary should instruct the patient to eat a low-fat diet.
--- NOTE | 2017-07-22 22:40 | RADIOLOGY REPORT (SQ) ---
EXAM DESCRIPTION: CTA CHEST COMPLETED DATE/TIME: 07/22/2017 10:12 pm REASON FOR STUDY: chest pain COMPARISON: None. TECHNIQUE: CT scan of the chest performed using helical scanning technique with dynamic intravenous contrast injection. Images reviewed with lung, soft tissue and bone windows. Reconstructed coronal and sagittal MPR images reviewed. Additional 3 dimensional post-processing performed to develop Maximal Intensity Projection images ([place] P). All images stored on PACS. All CT scanners at this facility use dose modulation, iterative reconstruction, and/or weight based d osing when appropriate to reduce radiation dose to as low as reasonably achievable (ALARA). [facility]: Dose Right [facility]: CareDose [facility]: Dose Right [facility]: Teradose 4D [facility]: AdNear CONTRAST TYPE AND DOSE: contrast/concentration: Isovue 370.00 mg/ml; Total Contrast Delivered: 76.0 ml; Total Saline Delivered: 70.0 ml Contrast bolus optimized for the pulmonary arteries. Not diagnostic for the aorta. RENAL FUNCTION: GFR > 60. RADIATION DOSE: Up-to-date CT equipment and radiation dose reduction techniques were employed. CTDIv ol: 14.3 mGy. DLP: 466 mGy-cm. . LIMITATIONS: None. FINDINGS: LUNGS AND PLEURA: Mild basilar subsegmental atelectasis. No patchy consolidation. No ple ural effusion or pneumothorax. AORTA AND GREAT VESSELS: No aneurysm. Contrast bolus not optimized for the aorta. HEART: No pericardial effusion. No significant coronary artery calcifications. PULMONARY ARTERIES: No emboli visualized in the main pulmonary arteries or the segmental branches. HILAR AND MEDIASTINAL STRUCTURES: Mid-lower esophageal wall thickening, measuring up to 7 mm in thick ness. Small air-fluid level in the lower esophagus. No identified abnormal nodes. HARDWARE: None in the chest. UPPER ABDOMEN: No significant findings. Limited exam. THYROID AND OTHER SOFT TISSUES: No masses. No adenopathy. BONES: No acute or significant finding. 3D MIPS: Confirm above findings. OTHER: No other significant finding. IMPRESSION: Mid-lower esophageal wall thickening, measuring up to 7 mm in thickness. Small air-flui d level in the lower esophagus. No identified abnormal nodes.Mild basilar subsegmental atelectasis. No emboli visualized in the main pulmonary arteries or the segmental branches.. COMMENT: Quality ID # [id number]: Final reports with documentation of one or more dose reduction techniques (e.g., Automated exposure control, adjustment of the mA and/or kV according to patient size, use of iterative reconstruction technique) TECHNICAL DOCUMENTATION: JOB ID: [id number] [employer]- All Rights Reserved
[2017-07-23] MEDS: LEVOFLOXACIN 500 MG/D5W RTU 500 MG/100 ML RTUPB IV SCH ×2 (00:06→21:10)
[2017-07-23] MEDS: NORMAL SALINE 1000 ML 1,000 ML IV PRN (00:07)
[2017-07-23] MEDS: LANSOPRAZOLE 15 MG TAB.RAP.DR PO SCH (05:22)
[2017-07-23] MEDS: MAG HYDROX/AL HYDROX/SIMETH SUSP 30 ML UDCUP PO PRN ×2 (05:23→16:15)
[2017-07-23 06:23] LABS: ABSOLUTE EOSINOPHILS # (AUTO) 0.2 10^3/uL (0.0-0.6); ABSOLUTE LYMPHOCYTES (AUTO) 2.1 10^3/uL (0.5-4.7); ABSOLUTE MONOCYTES (AUTO) 0.9 10^3/uL (0.1-1.4); ABSOLUTE NEUT (AUTO) 4.4 10^3/uL (1.7-8.2); BASOPHILS % (AUTO) 0.7 % (0-2); EOSINOPHILS % (AUTO) 2.5 % (0-6); HEMATOCRIT 36.7 % (36.0-47.0); HEMOGLOBIN 12.8 g/dL (12.0-15.5); HGB HCT DIFFERENCE 1.7; LYMPHOCYTES % (AUTO) 27.7 % (13-45); MEAN CORPUSCULAR HEMOGLOBIN 33.2 pg (27.0-33.4); MEAN CORPUSCULAR HGB CONC 35.1 g/dL (32.0-36.0); MEAN CORPUSCULAR VOLUME 95 fl (80-97); MONOCYTES % (AUTO) 11.4 % (3-13); RED BLOOD COUNT 3.87 10^6/uL (3.72-5.28); RED CELL DISTRIBUTION WIDTH 12.6 % (11.5-14.0); SEGMENTED NEUTROPHILS % (AUTO) 57.7 % (42-78); WHITE BLOOD COUNT 7.6 10^3/uL (4.0-10.5)
[2017-07-23] MEDS ORDERED: PROPOFOL INJ 200 MG/20 ML VIAL IV ONE (08:09)
--- NOTE | 2017-07-23 08:25 | PDOC PROGRESS REPORT ---
Subjective Progress Note for:: 07/23/17 Subjective:: Patient is currently doing well except patient still feeling the retrosternal discomfort and the patient have a CTA was done which is so some mild esophageal thickening and patient scheduled for the endoscopy by Dr. Varela today Patient otherwise denied any chest pain without any shortness of the breath Physical Exam Vital Signs: Temp Pulse Resp BP Pulse Ox 98.4 F 64 19 101/55 L 93 07/23/17 07:12 07/23/17 07:12 07/23/17 07:12 07/23/17 07:12 07/23/17 07:12 Intake & Output 07/22/17 07/23/17 07/24/17 06:59 06:59 06:59 Intake Total 150 1884 Balance 150 1884 Weight 56 kg 55.7 kg General appearance: PRESENT: no acute distress, well-developed, well-nourished Head exam: PRESENT: atraumatic, normocephalic Eye exam: PRESENT: conjunctiva pink, EOMI, PERRLA. ABSENT: scleral icterus Ear exam: PRESENT: normal external ear exam Mouth exam: PRESENT: moist, tongue midline Neck exam: PRESENT: full ROM. ABSENT: carotid bruit, JVD, lymphadenopathy, thyromegaly Respiratory exam: PRESENT: clear to auscultation be Cardiovascular exam: PRESENT: RRR. ABSENT: diastolic murmur, rubs, systolic murmur Pulses: PRESENT: normal dorsalis pedis pul, +2 pedal pulses bilateral Vascular exam: PRESENT: normal capillary refill GI/Abdominal exam: PRESENT: normal bowel sounds, soft. ABSENT: distended, guarding, mass, organolmegaly, rebound, tenderness Rectal exam: PRESENT: deferred Extremities exam: ABSENT: pedal edema Musculoskeletal exam: PRESENT: ambulatory Neurological exam: PRESENT: alert, awake, oriented to person, oriented to place , oriented to time, oriented to situation, CN II-XII grossly intact. ABSENT: motor sensory deficit Psychiatric exam: PRESENT: appropriate affect, normal mood. ABSENT: homicidal ideation, suicidal ideation Skin exam: PRESENT: dry, intact, warm. ABSENT: cyanosis, rash Results Laboratory Results: 07/23/17 06:08 07/22/17 06:27 07/22/17 07/22/17 07/23/17 08:27 08:27 06:08 WBC 7.6 RBC 3.87 Hgb 12.8 Hct 36.7 MCV 95 MCH 33.2 MCHC 35.1 RDW 12.6 Plt Count 286 Seg Neutrophils % 57.7 Lymphocytes % 27.7 Monocytes % 11.4 Eosinophils % 2.5 Basophils % 0.7 Absolute Neutrophils 4.4 Absolute Lymphocytes 2.1 Absolute Monocytes 0.9 Absolute Eosinophils 0.2 Absolute Basophils 0.0 Stool Occult Blood POSITIVE Stool for White Cells NO WBCs SEEN 07/21/17 07/21/17 07/22/17 23:41 23:41 06:27 Creatine Kinase 223 H 229 H CK-MB (CK-2) 2.49 Troponin I < 0.012 07/22/17 07/22/17 07/22/17 06:27 13:50 13:50 Creatine Kinase 229 H CK-MB (CK-2) 2.87 3.48 Troponin I < 0.012 < 0.012 Impressions: Abdomen/Pelvis CT 07/21/17 00:00 IMPRESSION: NO SIGNIFICANT OR ACUTE FINDINGS IN THE ABDOMEN OR PELVIS. Chest X-Ray 07/21/17 17:13 IMPRESSION: NO ACUTE RADIOGRAPHIC FINDING IN THE CHEST. Abdomen Ultrasound 07/21/17 18:41 IMPRESSION: Sludge in the gallbladder. Right pleural effusion. Chest/Abdomen CTA 07/22/17 00:00 IMPRESSION: Mid-lower esophageal wall thickening, measuring up to 7 mm in thickness. Small air-fluid level in the lower esophagus. No identified abnormal nodes.Mild basilar subsegmental atelectasis. No emboli visualized in the main pulmonary arteries or the segmental branches.. Assessment & Plan - Diagnosis (1) Diarrhea Qualifiers: Diarrhea type: unspecified type Qualified Code(s): R19.7 - Diarrhea, unspecified Is this a current diagnosis for this admission?: Yes Plan: Currently all stable most likely a viral gastroenteritis (2) Sludge in gallbladder Is this a current diagnosis for this admission?: Yes Plan: Follow with the general surgery as outpatient is no need for any intervention at this point per surgery (3) Abdominal pain Qualifiers: Abdominal location: unspecified location Qualified Code(s): R10.9 - Unspecified abdominal pain Is this a current diagnosis for this admission?: Yes Plan: Most likely esophagitis patient is going for the endoscopy per GI (4) COPD (chronic obstructive pulmonary disease) Qualifiers: Emphysema type: unspecified Is this a current diagnosis for this admission?: Yes Plan: Continues to DuoNeb nebulizer (5) Leukocytosis Qualifiers: Leukocytosis type: unspecified Qualified Code(s): D72.829 - Elevated white blood cell count, unspecified Is this a current diagnosis for this admission?: Yes Plan: Possible underlying pleural effusion as per described in the CT abdomen and pelvis we get the CT of the chest to rule out the other etiology and get the blood culture urine culture and start the patient on the Levaquin (6) GERD (gastroesophageal reflux disease) Qualifiers: Esophagitis presence: without esophagitis Qualified Code(s): K21.9 - Gastro -esophageal reflux disease without esophagitis Is this a current diagnosis for this admission?: Yes Plan: Continues to PPI while patient is complaining of a lot of epigastric pains and the burning sensations with this ongoing problem consult GI for further evaluations - Time Time Spent with patient: 15-24 minutes Medications reviewed and adjusted accordingly: Yes Anticipated discharge: Home Within: Other - Inpatient Certification Medical Necessity: Need Close Monitoring Due to Risk of Patient Decompensation Post Hospital Care: D/C Assistant Offset Press Operator Documentation - Plan Summary Plan Summary: Continues to monitor the patient's follow with the GI for endoscopy
[2017-07-23] MEDS ORDERED: MEPERIDINE HCL/PF INJ 25 MG/1 ML DISP.SYRIN IV PRN (09:29)
[2017-07-23] MEDS ORDERED: ONDANSETRON HCL INJ/PF 4 MG/2 ML SDV IV PRN (09:29)
[2017-07-23] MEDS ORDERED: MORPHINE SULFATE 10 MG/ML INJ IV PRN (09:29)
[2017-07-23] MEDS ORDERED: FENTANYL CITRATE INJ/PF 100 MCG/2 ML AMPUL IV PRN ×3 (09:29)
[2017-07-23] MEDS ORDERED: DIPHENHYDRAMINE HCL 50 MG/ML VIAL IV PRN (09:29)
--- NOTE | 2017-07-23 10:54 | Operative Report ---
Operative Report DATE OF SURGERY: 07/23/17 Operative Report: The risks benefits and alternatives of the procedure explained to the patient in detail and informed consent is obtained.A GIF Olympus video scope was inserted into the patient's mouth and hypopharynx, the esophagus is identified intubated and insufflated, the scope was then advanced through the esophagus stomach and duodenum, retroflexion maneuver is done, the esophagus stomach and first and second portions of the duodenum examined PREOPERATIVE DIAGNOSIS: Epigastric pain nausea vomiting POSTOPERATIVE DIAGNOSIS: Severe erosive esophagitis. Hiatal hernia. Gastritis status post biopsy rule out Helicobacter pylori OPERATION: EGD with biopsy SURGEON: ELVI GLOVER ANESTHESIA: LMAC TISSUE REMOVED OR ALTERED: Gastric mucosal specimen obtained. COMPLICATIONS: None. ESTIMATED BLOOD LOSS: None. INTRAOPERATIVE FINDINGS: As described above. PROCEDURE: Patient tolerated procedure well. No immediate postprocedure complications are noted. Patient sent back to her room in good condition. Resume regular diet. Resume previous activity level. PPI to heal the esophagitis. Repeat EGD in 6 weeks for reevaluation question possible Powers's esophagus underlying the esophagitis
[2017-07-23] MEDS: ENOXAPARIN SODIUM INJ 40 MG/0.4 ML DISP.SYRIN SUBCUT SCH (13:05)
[2017-07-23] MEDS: ACETAMINOPHEN 325 MG TABLET PO PRN (16:15)
[2017-07-23] MEDS: ONDANSETRON HCL INJ/PF 4 MG/2 ML SDV IV PRN (19:50)
[2017-07-24 06:11] LABS: ABSOLUTE EOSINOPHILS # (AUTO) 0.2 10^3/uL (0.0-0.6); ABSOLUTE LYMPHOCYTES (AUTO) 2.2 10^3/uL (0.5-4.7); ABSOLUTE NEUT (AUTO) 4.1 10^3/uL (1.7-8.2); BASOPHILS % (AUTO) 0.4 % (0-2); EOSINOPHILS % (AUTO) 2.5 % (0-6); HEMATOCRIT 36.5 % (36.0-47.0); HEMOGLOBIN 12.8 g/dL (12.0-15.5); HGB HCT DIFFERENCE 1.9; LYMPHOCYTES % (AUTO) 29.8 % (13-45); MEAN CORPUSCULAR HEMOGLOBIN 33.5 pg (27.0-33.4); MEAN CORPUSCULAR HGB CONC 35.1 g/dL (32.0-36.0); MEAN CORPUSCULAR VOLUME 95 fl (80-97); MONOCYTES % (AUTO) 13.2 % (3-13); RED BLOOD COUNT 3.82 10^6/uL (3.72-5.28); RED CELL DISTRIBUTION WIDTH 12.7 % (11.5-14.0); SEGMENTED NEUTROPHILS % (AUTO) 54.1 % (42-78); WHITE BLOOD COUNT 7.5 10^3/uL (4.0-10.5)
[2017-07-24] MEDS: LANSOPRAZOLE 15 MG TAB.RAP.DR PO SCH (06:12)
[2017-07-24 08:10] VITALS: BP 101/55
--- NOTE | 2017-07-24 08:21 | PDOC DISCHARGE SUMMARY ---
General - Admit/Disc Date/PCP Admission Date/Primary Care Provider: 07/21/17 23:02 SANDRA ALONZO MD Discharge Date: 07/24/17 - Discharge Diagnosis (1) Diarrhea Is this a current diagnosis for this admission?: Yes Summary: Is currently all resolved most likely a viral gastroenteritis (2) Sludge in gallbladder Is this a current diagnosis for this admission?: Yes Summary: Follow-up outpatients because no surgical (3) Abdominal pain Is this a current diagnosis for this admission?: Yes Summary: Most likely up from the esophagitis and gastritis currently all resolving (4) COPD (chronic obstructive pulmonary disease) Is this a current diagnosis for this admission?: Yes Summary: Currently all stable (5) Leukocytosis Is this a current diagnosis for this admission?: Yes Summary: All resolved (6) GERD (gastroesophageal reflux disease) Is this a current diagnosis for this admission?: Yes Summary: Continues the omeprazole (7) Esophagitis Is this a current diagnosis for this admission?: Yes Summary: Continues on omeprazole 40 mg twice daily for another month and then go back to once a day while patient have a lot of reflux symptoms and patient have a this ongoing problem since a young age and repeat the EGD per GI and a 6 week - Additional Information Resuscitation Status: Full Code Discharge Diet: As Tolerated Discharge Activity: Activity As Tolerated Home Medications: Omeprazole 40 mg PO DAILY #30 capsule. 07/23/17 Omeprazole 40 mg PO BID #60 capsule. 07/24/17 Ondansetron HCl [Zofran 4 mg Tablet] 1 tab PO Q4H PRN #20 tablet 07/24/17 History of Present Illness History of Present Illness: JIHAN VAUGHN is a 61 year old female with acute onset abdominal pain, nausea vomiting and diarrhea 3 days ago after having a tuna sandwich from [facility] which is her usual Friday afternoon meal. She became weak, with persisting diarrhea over the next 48 hours. The patient sought medical care with Dr. Alonzo who sent her to the emergency department where she underwent CT scan of the abdomen and pelvis which was fairly unremarkable. She then had a bladder ultrasound which showed sludge; trace right pleural effusion was noted. She was simultaneously ruled out for an acute cardiovascular and pulmonary event. She will CPK was elevated. She was admitted overnight for observation and rehydration. Patient initially came in the office with a complaint of at this epigastric pain and right upper quadrant pain to and patient have a history of abdominal pain in the past Patient also have a colonoscopy was done last year by Dr. Varela Hospital Course Hospital Course: There is a 61-year-old female was admitted because of the retrosternal pain abdominal pain patient initial all cardiac workup is negative patient underwent for the CT angiogram which is negative for any acute finding except some mild thickening wall of the esophagus Patients also have a CT abdomen and pelvis was done which is also negative except some sludge in the gallbladder and the surgery was consulted and suggest no need for any surgical intervention and follow as outpatient Patient's also underwent for the endoscopy with suggest the esophagitis and suggest the start the PPI and following a 6 weeks to repeat it Patient otherwise doing well patients walk in the hallway and patient's p.o. intake is fair Since still having some GI symptoms and will increase the PPI and continues to Mylanta as needed Patient's otherwise discharged home with the stable conditions and follow outpatient as above Physical Exam Vital Signs: Temp Pulse Resp BP Pulse Ox 97.6 F 64 20 101/55 L 96 07/24/17 08:06 07/24/17 08:06 07/24/17 08:06 07/24/17 08:06 07/24/17 08:06 Intake & Output 07/23/17 07/24/17 07/25/17 06:59 06:59 06:59 Intake Total 1884 2327 Output Total 0 Balance 1884 2327 Weight 55.7 kg 57.1 kg General appearance: PRESENT: no acute distress, well-developed, well-nourished Head exam: PRESENT: atraumatic, normocephalic Eye exam: PRESENT: conjunctiva pink, EOMI, PERRLA. ABSENT: scleral icterus Ear exam: PRESENT: normal external ear exam Mouth exam: PRESENT: moist, tongue midline Neck exam: PRESENT: full ROM. ABSENT: carotid bruit, JVD, lymphadenopathy, thyromegaly Respiratory exam: PRESENT: clear to auscultation be Cardiovascular exam: PRESENT: RRR. ABSENT: diastolic murmur, rubs, systolic murmur Pulses: PRESENT: normal dorsalis pedis pul, +2 pedal pulses bilateral Vascular exam: PRESENT: normal capillary refill GI/Abdominal exam: PRESENT: normal bowel sounds, soft. ABSENT: distended, guarding, mass, organolmegaly, rebound, tenderness Rectal exam: PRESENT: deferred Extremities exam: ABSENT: pedal edema Musculoskeletal exam: PRESENT: ambulatory Neurological exam: PRESENT: alert, awake, oriented to person, oriented to place , oriented to time, oriented to situation, CN II-XII grossly intact. ABSENT: motor sensory deficit Psychiatric exam: PRESENT: appropriate affect, normal mood. ABSENT: homicidal ideation, suicidal ideation Skin exam: PRESENT: dry, intact, warm. ABSENT: cyanosis, rash Results Laboratory Results: 07/24/17 04:32 07/22/17 06:27 07/24/17 04:32 WBC 7.5 RBC 3.82 Hgb 12.8 Hct 36.5 MCV 95 MCH 33.5 H MCHC 35.1 RDW 12.7 Plt Count 296 Seg Neutrophils % 54.1 Lymphocytes % 29.8 Monocytes % 13.2 H Eosinophils % 2.5 Basophils % 0.4 Absolute Neutrophils 4.1 Absolute Lymphocytes 2.2 Absolute Monocytes 1.0 Absolute Eosinophils 0.2 Absolute Basophils 0.0 07/21/17 07/21/17 07/22/17 23:41 23:41 06:27 Creatine Kinase 223 H 229 H CK-MB (CK-2) 2.49 Troponin I < 0.012 07/22/17 07/22/17 07/22/17 06:27 13:50 13:50 Creatine Kinase 229 H CK-MB (CK-2) 2.87 3.48 Troponin I < 0.012 < 0.012 Impressions: Abdomen/Pelvis CT 07/21/17 00:00 IMPRESSION: NO SIGNIFICANT OR ACUTE FINDINGS IN THE ABDOMEN OR PELVIS. Chest X-Ray 07/21/17 17:13 IMPRESSION: NO ACUTE RADIOGRAPHIC FINDING IN THE CHEST. Abdomen Ultrasound 07/21/17 18:41 IMPRESSION: Sludge in the gallbladder. Right pleural effusion. Chest/Abdomen CTA 07/22/17 00:00 IMPRESSION: Mid-lower esophageal wall thickening, measuring up to 7 mm in thickness. Small air-fluid level in the lower esophagus. No identified abnormal nodes.Mild basilar subsegmental atelectasis. No emboli visualized in the main pulmonary arteries or the segmental branches.. Plan Time Spent: Greater than 30 Minutes - We will follow the patient in 1 week in office repeat the CBC and Chem-7 in the office Follow with [facility] for the rule out any other gallbladder issues for the gallbladder slows Follow with the Dr. Varela and repeat the EGD in 6 week
== END 2017-07-24 09:56 | disposition home or self-care (01) | DRG 381 ==
LOC: ER 15:37 → EH 23:02 → UNDOADMIN 23:24 → 3S 07-22 05:05
PROVIDERS: ADMIT Family Medicine; ATTEND Family Medicine
PROC: 0DB68ZX Excision of Stomach, Via Natural or Artificial Opening Endoscopic, Diagnostic (ICD-10-PCS; principal; 2017-07-23 09:30)
DX: K22.10 Ulcer of esophagus without bleeding (principal); J90 Pleural effusion, not elsewhere classified; A08.4 Viral intestinal infection, unspecified; E86.0 Dehydration; K82.9 Disease of gallbladder, unspecified; K21.0 Gastro-esophageal reflux disease with esophagitis; K29.70 Gastritis, unspecified, without bleeding; J44.9 Chronic obstructive pulmonary disease, unspecified; K44.9 Diaphragmatic hernia without obstruction or gangrene; D72.829 Elevated white blood cell count, unspecified; F17.210 Nicotine dependence, cigarettes, uncomplicated; Z86.010 Personal history of colon polyps; Z90.49 Acquired absence of other specified parts of digestive tract; Z88.0 Allergy status to penicillin; Z88.6 Allergy status to analgesic agent
CPT/HCPCS: 36415; 43239; 71010; 71275; 740; 74177; 76705; 80053; 81001; 82272; 82550; 82553; 83690; 84484; 85025; 87040; 87045; 87086; 87205; 87493; 88305; 88342; 89055; 93005; 93010; 96374; 96375; 99285; J1956; J2270; J2405; J2704; J3490; J7030; S0028

== ENCOUNTER 2017-09-03 07:25 | Day surgery (SDC) | payer BC ==
[~2017-09-03 07:25] MED LIST: DIPHENHYDRAMINE HCL 50 MG/ML VIAL ONE; EPINEPHRINE INJ 1 MG/10 ML DISP.SYRIN ONE; FLUMAZENIL INJ 0.5 MG/5 ML VIAL ONE; GLUCAGON,HUMAN RECOMB 1 MG INJ ONE; NALOXONE HCL INJ/PF 0.4 MG/1 ML SDV ONE; ONDANSETRON HCL INJ/PF 4 MG/2 ML SDV ONE
[2017-09-03] MEDS: MIDAZOLAM 2 MG/2 ML INJ ONE ×2 (07:41→07:46)
[2017-09-03] MEDS: FENTANYL CITRATE INJ/PF 100 MCG/2 ML AMPUL ONE ×2 (07:43→07:50)
--- NOTE | 2017-09-03 07:57 | Operative Report ---
Operative Report DATE OF SURGERY: 09/03/17 Operative Report: The risks benefits and alternatives of the procedure explained to the patient in detail and informed consent is obtained.A GIF Olympus video scope was inserted into the patient's mouth and hypopharynx, the esophagus is identified intubated and insufflated, the scope was then advanced through the esophagus stomach and duodenum, retroflexion maneuver is done, the esophagus stomach and first and second portions of the duodenum examined PREOPERATIVE DIAGNOSIS: History of esophagitis, Powers's esophagus POSTOPERATIVE DIAGNOSIS: Hiatal hernia. Small area of residual Powers's esophagus that was ablated in situ OPERATION: EGD with ablation SURGEON: ELVI GLOVER ANESTHESIA: Moderate Sedation - 4 mg of Versed, 100 mcg of fentanyl. Conscious sedation monitoring time 30 minutes. TISSUE REMOVED OR ALTERED: None. COMPLICATIONS: None. ESTIMATED BLOOD LOSS: None. INTRAOPERATIVE FINDINGS: As noted above. PROCEDURE: Patient tolerated procedure well. No immediate postprocedure complications are noted. Patient discharged in good condition. Discharge date 09/03/2017. Discharge diet: Regular. Discharge activity: Regular. 2-3 week follow-up to discuss findings. Patient is instructed to call the office or proceed to the emergency room should there be any further problems or questions. Follow-up as needed.
[2017-09-03 09:06] VITALS: BP 128/75
== END 2017-09-03 09:10 | disposition home or self-care (01) ==
LOC: END 07:25
PROVIDERS: ATTEND Internal Medicine Gastroenterology
PROC: 0D558ZZ Destruction of Esophagus, Via Natural or Artificial Opening Endoscopic (ICD-10-PCS; principal; 2017-09-03 08:00)
DX: K22.70 Barrett's esophagus without dysplasia (principal); K44.9 Diaphragmatic hernia without obstruction or gangrene; K21.9 Gastro-esophageal reflux disease without esophagitis; J44.9 Chronic obstructive pulmonary disease, unspecified
CPT/HCPCS: 43270; J2250; J3010; J0171; J1200; J1610; J2310; J2405; J3490

== ENCOUNTER → 2017-10-15 | Outpatient (CLI) | payer BC ==
--- NOTE | 2017-10-15 14:57 | RADIOLOGY REPORT (SQ) ---
EXAM DESCRIPTION: CHEST PA/LATERAL COMPLETED DATE/TIME: 10/15/2017 1:55 pm REASON FOR STUDY: COUGH COMPARISON: July 2017 EXAM PARAMETERS: NUMBER OF VIEWS: two views TECHNIQUE: Digital Frontal and Lateral radiographic views of the chest acquired. RADIATION DOSE: NA LIMITATIONS: none FINDINGS: LUNGS AND PLEURA: No opacities, masses or pneumothorax. No pleural effusion. MEDIASTINUM AND HILAR STRUCTURES: No masses or contour abnormalities. HEART AND VASCULAR STRUCTURES: Heart normal size. No evidence for failure. BONES: No acute findings. HARDWARE: None in the chest. OTHER: No other significant finding. IMPRESSION: NO SIGNIFICANT RADIOGRAPHIC FINDING IN THE CHEST. TECHNICAL DOCUMENTATION: JOB ID: [id number] [employer]- All Rights Reserved
== END ==
LOC: OD 13:39
PROVIDERS: ATTEND Physician Assistant
DX: R05 Cough (principal)
CPT/HCPCS: 71046

== ENCOUNTER → 2017-10-20 | Outpatient (CLI) | payer BC ==
[2017-10-20 15:24] LABS: ANION GAP 11 (5-19); BLOOD UREA NITROGEN 13 mg/dL (7-20); CALCIUM 10.3 mg/dL (8.4-10.2); CARBON DIOXIDE 30 mmol/L (22-30); CHLORIDE 104 mmol/L (98-107); GLUCOSE 98 mg/dL (75-110); POTASSIUM 4.2 mmol/L (3.6-5.0); SODIUM 145.2 mmol/L (137-145)
== END ==
LOC: OD 14:42
PROVIDERS: ATTEND Physician Assistant
DX: E87.5 Hyperkalemia (principal)
CPT/HCPCS: 36415; 80048

== ENCOUNTER → 2018-03-12 | Outpatient (CLI) | payer OTHER ==
--- NOTE | 2018-03-12 15:03 | RADIOLOGY REPORT (SQ) ---
EXAM DESCRIPTION: CT CHEST WITHOUT COMPLETED DATE/TIME: 03/12/2018 12:15 pm REASON FOR STUDY: COPD (J44.9), HX SMOKING (Z72.0) J44.9 CHRONIC OBSTRUCTIVE PULMONARY DISEASE, UNS PECIFIED COMPARISON: 07/22/2017 TECHNIQUE: CT scan performed of the chest without intravenous contrast. Images reviewed with lung, soft tissue and bone windows. Reconstructed coronal and sagittal MPR images reviewed. All images st ored on PACS. All CT scanners at this facility use dose modulation, iterative reconstruction, and/or weight based d osing when appropriate to reduce radiation dose to as low as reasonably achievable (ALARA). [facility]: Dose Right [facility]: CareDose [facility]: Dose Right [facility]: Teradose 4D [facility]: [employer] RADIATION DOSE: CT Rad equipment meets quality standard of care and radiation dose reduction techniq ues were employed. CTDIvol: 4.8 mGy. DLP: 191 mGy-cm. mGy. LIMITATIONS: No technical limitations. FINDINGS: LUNGS AND PLEURA: Emphysematous changes in the lungs with stable small apical-upper lobe paraseptal blebs/ bulla leak, more so on the right. A few very small stable subcentimeter pulmonary nodules. No acute pulmonary consolidation. No pneumothorax or pleural effusion. The central airway s are clear. HILAR AND MEDIASTINAL STRUCTURES: No significant interval changes. Stable appearance to the mid-lowe r esophageal wall thickening(an esophagram may be helpful if it has not been performed for further ev aluation of this finding). Stable small hiatal hernia. HEART AND VASCULAR STRUCTURES: No aneurysm. No pericardial effusion. UPPER ABDOMEN: No significant interval changes. Limited exam. THYROID AND OTHER SOFT TISSUES: No masses. No adenopathy. BONES: The osseous structures are stable in appearance. HARDWARE: None in the chest. IMPRESSION: 1 No significant interval changes since the prior examination dated 07/22/2017. 2. Emphysematous changes in the lungs. 3. Small very stable subcentimeter pulmonary nodules. 4. Additonal stable fndings; please see above. TECHNICAL DOCUMENTATION: JOB ID: [id number] Quality ID # [id number]: Final reports with documentation of one or more dose reduction techniques (e.g., Au tomated exposure control, adjustment of the mA and/or kV according to patient size, use of iterative reconstruction technique) 2010 [employer]- All Rights Reserved Reading location - IP/workstation name: [email or web address]
== END ==
LOC: RAD 11:25
DX: J44.9 Chronic obstructive pulmonary disease, unspecified (principal); Z72.0 Tobacco use
CPT/HCPCS: 71250

== ENCOUNTER → 2018-03-18 | Outpatient (CLI) | payer OTHER ==
[2018-03-18 17:17] LABS: ABSOLUTE BASOPHILS # (AUTO) 0.1 10^3/uL (0.0-0.2); ABSOLUTE EOSINOPHILS # (AUTO) 0.2 10^3/uL (0.0-0.6); ABSOLUTE LYMPHOCYTES (AUTO) 3.1 10^3/uL (0.5-4.7); ABSOLUTE MONOCYTES (AUTO) 0.8 10^3/uL (0.1-1.4); ABSOLUTE NEUT (AUTO) 5.8 10^3/uL (1.7-8.2); BASOPHILS % (AUTO) 0.7 % (0-2); EOSINOPHILS % (AUTO) 2.3 % (0-6); HEMATOCRIT 43.4 % (36.0-47.0); HEMOGLOBIN 15.1 g/dL (12.0-15.5); LYMPHOCYTES % (AUTO) 31.1 % (13-45); MEAN CORPUSCULAR HEMOGLOBIN 33.5 pg (27.0-33.4); MEAN CORPUSCULAR HGB CONC 34.8 g/dL (32.0-36.0); MEAN CORPUSCULAR VOLUME 96 fl (80-97); MONOCYTES % (AUTO) 7.7 % (3-13); PLATELET COUNT 441 10^3/uL (150-450); RED BLOOD COUNT 4.51 10^6/uL (3.72-5.28); RED CELL DISTRIBUTION WIDTH 13.3 % (11.5-14.0); SEGMENTED NEUTROPHILS % (AUTO) 58.2 % (42-78); TOTAL CELLS COUNTED % (AUTO) 100 %; WHITE BLOOD COUNT 9.9 10^3/uL (4.0-10.5)
[2018-03-18 17:35] LABS: ALANINE AMINOTRANSFERASE 31 U/L (9-52); ALBUMIN 4.9 g/dL (3.5-5.0); ALKALINE PHOSPHATASE 85 U/L (38-126); ANION GAP 14 (5-19); ASPARTATE AMINO TRANSFERASE 35 U/L (14-36); BILIRUBIN,DIRECT 0.4 mg/dL (0.0-0.4); BILIRUBIN,TOTAL 0.5 mg/dL (0.2-1.3); BLOOD UREA NITROGEN 13 mg/dL (7-20); CALCIUM 10.9 mg/dL (8.4-10.2); CARBON DIOXIDE 25 mmol/L (22-30); CHLORIDE 107 mmol/L (98-107); CHOLESTEROL 201.17 mg/dL (0-200); GLUCOSE 92 mg/dL (75-110); POTASSIUM 4.4 mmol/L (3.6-5.0); SODIUM 145.7 mmol/L (137-145); TOTAL PROTEIN 7.8 g/dL (6.3-8.2); TRIGLYCERIDES 131 mg/dL (<150)
[2018-03-18 17:46] LABS: DIRECT LDL 95 mg/dL (<100)
== END ==
LOC: CCC 15:32
DX: Z00.00 Encounter for general adult medical examination without abnormal findings (principal)
CPT/HCPCS: 36415; 80053; 80061; 83036; 84443; 85025

== ENCOUNTER → 2018-03-27 | Outpatient (CLI) | payer OTHER ==
--- NOTE | 2018-03-27 13:21 | RADIOLOGY REPORT (SQ) ---
EXAM DESCRIPTION: UGI SERIES COMPLETED DATE/TIME: 03/27/2018 8:35 am REASON FOR STUDY: OTHER SPECIFIED DISEASES OF ESOPHAGUS K22.8 OTHER SPECIFIED DISEASES OF ESOPHAGUS gastroesophageal reflux and vomiting COMPARISON: None. TECHNIQUE: Under fluoroscopic guidance, patient ingested effervescent granules followed by thick and thin barium. Fluoroscopic spot images and routine radiographic images acquired and stored on PACS. 12 MM BARIUM TABLET GIVEN: Yes. No significant delay in passage. LIMITATIONS: None. FLUOROSCOPY TIME: FLUORO TIME: 2.9 minutes of fluoroscopy was used. 31 images saved to PACS. FINDINGS: NEUROMUSCULAR COORDINATION OF SWALLOW: Normal. No aspiration. ESOPHAGEAL MOTILITY: Normal peristalsis. No esophageal spasm. ESOPHAGEAL MUCOSA: Normal mucosa without masses or ulceration. GASTRO-ESOPHAGEAL JUNCTION: Small sliding hiatal hernia with mild gastroesophageal reflux seen on kanika yeung's study. STOMACH: Prominent mucosal folds throughout the stomach without evidence of ulceration. GASTRIC OUTLET: No delay in emptying. Normal pylorus. DUODENAL BULB: Normal distention. No spasm or ulceration. DUODENUM: Prominent mucosal folds along the 2nd portion of the duodenum with small collections of bar ium which may represent ulcerations. PROXIMAL SMALL BOWEL: Mucosa normal. No extrinsic masses or malrotation. NON-GI TRACT STRUCTURES: No significant finding. OTHER: No other significant finding. IMPRESSION: FINDINGS CONSISTENT WITH GASTRITIS AND DUODENITIS WITH POSSIBLE ULCERS ALONG THE 2ND POR TION OF THE DUODENUM. MILD GASTROESOPHAGEAL REFLUX AND SMALL HIATAL HERNIA. COMMENT: Quality ID 145: Final reports for procedures using fluoroscopy that document radiation exp osure indices, or exposure time and number of fluorographic images (if radiation exposure indices are not available) TECHNICAL DOCUMENTATION: JOB ID: [id number] [employer]- All Rights Reserved Reading location - IP/workstation name: [email or web address]
== END ==
LOC: RAD 07:43
DX: K22.8 Other specified diseases of esophagus (principal)
CPT/HCPCS: 74247

== ENCOUNTER 2018-03-31 12:45 | Emergency (ER) | payer OTHER ==
--- NOTE | 2018-03-31 15:20 | ER Document Report ---
ED Medical Screen (RME) - General Chief Complaint: Abdominal Pain Stated Complaint: ABDOMINAL PAIN Time Seen by Provider: 03/31/18 15:11 Notes: Patient is a 62-year-old female that was sent in by her primary care physician for abdominal bloating and "feeling full". Patient has had diarrhea 8-12 times a day the last few days as well. Patient states last time she had these symptoms she had a portion of her colon removed secondary to "four large polyps ". Patient also mentions she has had a cough. Patient denies any recent travel or hospitalization. I have greeted and performed a rapid initial assessment of this patient. A comprehensive ED assessment and evaluation of the patient, analysis of test results, and completion of the medical decision making process will be conducted by additional ED providers. Review of systems: Positive for bloating, cough, and abdominal pain. Negative for recent travel or hospitalization. Physical Exam: General: Alert, appears minimally uncomfortable. HEENT: Normocephalic. Atraumatic. PERRLA. Extraocular movements intact. Oropharynx clear. Neck: Supple. Respiratory: No respiratory distress. Abdominal: Slight distension. Diffuse abdominal tenderness. Extremities: Moves all four extremities. Neurological: Normal cognition. AAOx4. Normal speech. Psychological: Normal affect. Normal Mood. Skin: Warm. Dry. Normal color. TRAVEL OUTSIDE OF THE [place] IN LAST 30 DAYS: No - Related Data Allergies/Adverse Reactions: codeine [Codeine] Allergy (Intermediate, Verified 03/31/18 12:46) PALE, UNABLE TO MOVE hydromorphone HCl [From Dilaudid] Allergy (Intermediate, Verified 03/31/18 12:46 ) nausea and itching Penicillins Allergy (Intermediate, Verified 03/31/18 12:46) NAUSEA, VOMITING Past Medical History - Social History Drug Abuse: Bath salts - Past Medical History Cardiac Medical History: Reports: Hx Heart Murmur - HAD ECHO IN THE PAST IN 2013 , EKG OBTAINED 04/2014 Denies: Hx Atrial Fibrillation, Hx Congestive Heart Failure, Hx Coronary Artery Disease, Hx Heart Attack - QUESTIONABLE IRREGULAR HEARTBEAT VS MURMUR, EKG NEG, Hx Hypercholesterolemia, Hx Hypertension, Hx Peripheral Vascular Disease, Hx Pulmonary Embolism Pulmonary Medical History: Reports: Hx Asthma, Hx Bronchitis, Hx COPD Denies: Hx Pneumonia, Hx Respiratory Failure, Hx Sleep Apnea, Hx Tuberculosis Neurological Medical History: Denies: Hx Cerebrovascular Accident, Hx Seizures Renal/ Medical History: Denies: Hx Peritoneal Dialysis Malignancy Medical History: Denies: Hx Leukemia, Hx Lung Cancer GI Medical History: Reports: Hx Gastroesophageal Reflux Disease, Hx Hiatal Hernia - UNSURE. Denies: Hx Crohn's Disease, Hx Hepatitis, Hx Irritable Bowel, Hx Liver Failure, Hx Pancreatitis, Hx Ulcer Musculoskeltal Medical History: Denies Hx Arthritis Psychiatric Medical History: Denies: Hx Depression Infectious Medical History: Denies: Hx Hepatitis, Hx HIV Past Surgical History: Reports: Hx Bowel Surgery - May 03. See old records., Hx Nose Surgery - Deviated Septum, Hx Tonsillectomy - AGE 13, Other - Right hemicolectomy, Dr. Mendez, 2013: Pilonidal cystectomy: Nasal septum terri. Denies: Hx Appendectomy, Hx Section, Hx Cholecystectomy, Hx Colostomy, Hx Coronary Artery Bypass Graft, Hx Gastric Bypass Surgery, Hx Herniorrhaphy, Hx Hysterectomy, Hx Mastectomy, Hx Open Heart Surgery, Hx Pacemaker, Hx Tubal Ligation. Comment Only: Hx Abdominal Surgery - Part of colon removed - Immunizations Hx Diphtheria, Pertussis, Tetanus Vaccination: No History of Influenza Vaccine for 07/2017 - 12/2017 Season: No Physical Exam - Vital signs Vitals: Temp Pulse Resp BP Pulse Ox 98.6 F 62 16 142/91 H 96 03/31/18 13:01 03/31/18 13:01 03/31/18 13:01 03/31/18 13:01 03/31/18 13:01 Course - Vital Signs Vital signs: Temp Pulse Resp BP Pulse Ox 98.6 F 62 16 142/91 H 96 03/31/18 13:01 03/31/18 13:01 03/31/18 13:01 03/31/18 13:01 03/31/18 13:01 Doctor's Discharge - Discharge Referrals: [facility] [Primary Care Provider] - Follow up as needed
--- NOTE | 2018-03-31 15:50 | RADIOLOGY REPORT (SQ) ---
EXAM DESCRIPTION: CHEST 2 VIEWS COMPLETED DATE/TIME: 03/31/2018 3:39 pm REASON FOR STUDY: cough congestion, hx of COPD COMPARISON: 11/07/2014 EXAM PARAMETERS: NUMBER OF VIEWS: two views TECHNIQUE: Digital Frontal and Lateral radiographic views of the chest acquired. RADIATION DOSE: NA LIMITATIONS: none FINDINGS: LUNGS AND PLEURA: No opacities, masses or pneumothorax. No pleural effusion. MEDIASTINUM AND HILAR STRUCTURES: No masses or contour abnormalities. HEART AND VASCULAR STRUCTURES: Heart normal size. No evidence for failure. BONES: No acute findings. HARDWARE: None in the chest. OTHER: No other significant finding. IMPRESSION: NO ACUTE RADIOGRAPHIC FINDING IN THE CHEST. TECHNICAL DOCUMENTATION: JOB ID: [id number] [employer]- All Rights Reserved Reading location - IP/workstation name: [email or web address]
[2018-03-31 16:07] LABS: ABSOLUTE BASOPHILS # (AUTO) 0.1 10^3/uL (0.0-0.2); ABSOLUTE EOSINOPHILS # (AUTO) 0.3 10^3/uL (0.0-0.6); ABSOLUTE LYMPHOCYTES (AUTO) 3.2 10^3/uL (0.5-4.7); ABSOLUTE MONOCYTES (AUTO) 0.8 10^3/uL (0.1-1.4); ABSOLUTE NEUT (AUTO) 7.3 10^3/uL (1.7-8.2); APPEARANCE,URINE CLEAR; BASOPHILS % (AUTO) 0.8 % (0-2); BILIRUBIN,URINE NEGATIVE (NEGATIVE); COLOR,URINE STRAW; EOSINOPHILS % (AUTO) 2.3 % (0-6); GLUCOSE, URINE NEGATIVE (NEGATIVE); HEMATOCRIT 45.2 % (36.0-47.0); HEMOGLOBIN 15.3 g/dL (12.0-15.5); KETONES,URINE NEGATIVE (NEGATIVE); LEUKOCYTE ESTERASE,URINE NEGATIVE (NEGATIVE); LYMPHOCYTES % (AUTO) 27.3 % (13-45); MEAN CORPUSCULAR HEMOGLOBIN 33.1 pg (27.0-33.4); MEAN CORPUSCULAR VOLUME 98 fl (80-97); MONOCYTES % (AUTO) 7.2 % (3-13); NITRITE,URINE NEGATIVE (NEGATIVE); PLATELET COUNT 417 10^3/uL (150-450); PROTEIN,URINE NEGATIVE (NEGATIVE); RED BLOOD COUNT 4.63 10^6/uL (3.72-5.28); RED CELL DISTRIBUTION WIDTH 13.7 % (11.5-14.0); SEGMENTED NEUTROPHILS % (AUTO) 62.4 % (42-78); TOTAL CELLS COUNTED % (AUTO) 100 %; URINE SPECIFIC GRAVITY 1.008; UROBILINOGEN,URINE NEGATIVE mg/dL (<2.0); WHITE BLOOD COUNT 11.7 10^3/uL (4.0-10.5)
[2018-03-31 16:21] LABS: ALANINE AMINOTRANSFERASE 28 U/L (9-52); ALBUMIN 4.9 g/dL (3.5-5.0); ALKALINE PHOSPHATASE 75 U/L (38-126); ANION GAP 12 (5-19); ASPARTATE AMINO TRANSFERASE 31 U/L (14-36); BILIRUBIN,DIRECT 0.4 mg/dL (0.0-0.4); BILIRUBIN,TOTAL 0.4 mg/dL (0.2-1.3); BLOOD UREA NITROGEN 10 mg/dL (7-20); CALCIUM 9.9 mg/dL (8.4-10.2); CARBON DIOXIDE 30 mmol/L (22-30); CHLORIDE 108 mmol/L (98-107); GLUCOSE 87 mg/dL (75-110); LIPASE 134.3 U/L (23-300); POTASSIUM 4.2 mmol/L (3.6-5.0); SODIUM 150.2 mmol/L (137-145); TOTAL PROTEIN 7.5 g/dL (6.3-8.2)
--- NOTE | 2018-03-31 18:42 | RADIOLOGY REPORT (SQ) ---
EXAM DESCRIPTION: CT ABD/PELVIS WITH IV ORAL COMPLETED DATE/TIME: 03/31/2018 6:20 pm REASON FOR STUDY: abd pain, diarrhea, bloating, hx of rt side colect COMPARISON: None. TECHNIQUE: CT scan of the abdomen and pelvis performed using helical scanning technique with dynamic intravenous contrast injection. No oral contrast. Images reviewed with lung, soft tissue, and bone windows. Reconstructed coronal and sagittal MPR images reviewed. Delayed images for evaluation of the urinary system also acquired. All images stored on PACS. All CT scanners at this facility use dose modulation, iterative reconstruction, and/or weight based d osing when appropriate to reduce radiation dose to as low as reasonably achievable (ALARA). [facility]: Dose Right [facility]: CareDose [facility]: Dose Right [facility]: Teradose 4D [facility]: Extreme Reality CONTRAST TYPE AND DOSE: contrast/concentration: Isovue 370.00 mg/ml; Total Contrast Delivered: 64.0 ml; Total Saline Delivered: 33.0 ml 64 cc Isovue 370- low osmolar. RENAL FUNCTION: Creatinine 0.4 RADIATION DOSE: CT Rad equipment meets quality standard of care and radiation dose reduction techniq ues were employed. CTDIvol: 4.9 - 5.8 mGy. DLP: 555 mGy-cm.. LIMITATIONS: None. FINDINGS: LOWER CHEST: No significant findings. No nodules or infiltrates. LIVER: Normal size. No masses. No dilated ducts. SPLEEN: Normal size. No focal lesions. PANCREAS: No masses. No significant calcifications. No adjacent inflammation or peripancreatic fluid collections. Pancreatic duct not dilated. GALLBLADDER: No identified stones by CT criteria. No inflammatory changes to suggest cholecystitis. ADRENAL GLANDS: No significant masses or asymmetry. RIGHT KIDNEY AND URETER: No solid masses. No significant calcifications. No hydronephrosis or hyd roureter. LEFT KIDNEY AND URETER: No solid masses. No significant calcifications. No hydronephrosis or hydr oureter. AORTA AND VESSELS: No aneurysm. No dissection. Renal arteries, SMA, celiac without stenosis. RETROPERITONEUM: No retroperitoneal adenopathy, hemorrhage or masses. BOWEL AND PERITONEAL CAVITY: No masses or inflammatory changes. No free fluid or peritoneal masses. Status post right hemicolectomy. APPENDIX: Surgically absent. PELVIS: No mass. No free fluid. Normal bladder. ABDOMINAL WALL: No masses. No hernias. BONES: No significant or acute findings. OTHER: No other significant finding. IMPRESSION: NO SIGNIFICANT OR ACUTE FINDING IN THE ABDOMEN OR PELVIS ON CT SCAN WITH IV CONTRAST. TECHNICAL DOCUMENTATION: JOB ID: [id number] Quality ID # [id number]: Final reports with documentation of one or more dose reduction techniques (e.g., Au tomated exposure control, adjustment of the mA and/or kV according to patient size, use of iterative reconstruction technique) 2010 [employer]- All Rights Reserved Reading location - IP/workstation name: [email or web address]
[2018-03-31] MEDS ORDERED: RINGERS SOLUTION,LACTATED 1,000 ML IV ONE (18:51)
--- NOTE | 2018-03-31 20:22 | ER Document Report ---
ED General - General Chief Complaint: Abdominal Pain Stated Complaint: ABDOMINAL PAIN Time Seen by Provider: 03/31/18 15:11 TRAVEL OUTSIDE OF THE [place] IN LAST 30 DAYS: No - HPI Patient complains to provider of: Right lower quadrant abdominal pain diarrhea Notes: Patient coming in for right lower quadrant abdominal pain and chronic diarrhea. Patient states diarrhea ongoing for greater than a week. Patient was seen by PCP at [facility] referred to the ER for further evaluation. Patient has pending a GI evaluation by Dr. Varela. Denies any recent antibiotics patient states she has been taking Imodium at home. Patient states right lower quadrant abdominal pain with a history of a right hemicolectomy according to the patient. Patient denies any travel new pets patient states that she has watery diarrhea with no relief with the medications denies trauma denies fevers chills nausea vomiting - Related Data Allergies/Adverse Reactions: codeine [Codeine] Allergy (Intermediate, Verified 03/31/18 12:46) PALE, UNABLE TO MOVE hydromorphone HCl [From Dilaudid] Allergy (Intermediate, Verified 03/31/18 12:46 ) nausea and itching Penicillins Allergy (Intermediate, Verified 03/31/18 12:46) NAUSEA, VOMITING Past Medical History - Social History Smoking Status: Never Smoker Drug Abuse: Bath salts Family History: Reviewed & Not Pertinent Patient has suicidal ideation: No Patient has homicidal ideation: No - Past Medical History Cardiac Medical History: Reports: Hx Heart Murmur - HAD ECHO IN THE PAST IN 2013 , EKG OBTAINED 04/2014 Denies: Hx Atrial Fibrillation, Hx Congestive Heart Failure, Hx Coronary Artery Disease, Hx Heart Attack - QUESTIONABLE IRREGULAR HEARTBEAT VS MURMUR, EKG NEG, Hx Hypercholesterolemia, Hx Hypertension, Hx Peripheral Vascular Disease, Hx Pulmonary Embolism Pulmonary Medical History: Reports: Hx Asthma, Hx Bronchitis, Hx COPD Denies: Hx Pneumonia, Hx Respiratory Failure, Hx Sleep Apnea, Hx Tuberculosis Neurological Medical History: Denies: Hx Cerebrovascular Accident, Hx Seizures Renal/ Medical History: Denies: Hx Peritoneal Dialysis Malignancy Medical History: Denies: Hx Leukemia, Hx Lung Cancer GI Medical History: Reports: Hx Gastroesophageal Reflux Disease, Hx Hiatal Hernia - UNSURE. Denies: Hx Crohn's Disease, Hx Hepatitis, Hx Irritable Bowel, Hx Liver Failure, Hx Pancreatitis, Hx Ulcer Musculoskeltal Medical History: Denies Hx Arthritis Psychiatric Medical History: Denies: Hx Depression Infectious Medical History: Denies: Hx Hepatitis, Hx HIV Past Surgical History: Reports: Hx Bowel Surgery - May 03. See old records., Hx Nose Surgery - Deviated Septum, Hx Tonsillectomy - AGE 13, Other - Right hemicolectomy, Dr. Mendez, 2013: Pilonidal cystectomy: Nasal septum terri. Denies: Hx Appendectomy, Hx Section, Hx Cholecystectomy, Hx Colostomy, Hx Coronary Artery Bypass Graft, Hx Gastric Bypass Surgery, Hx Herniorrhaphy, Hx Hysterectomy, Hx Mastectomy, Hx Open Heart Surgery, Hx Pacemaker, Hx Tubal Ligation. Comment Only: Hx Abdominal Surgery - Part of colon removed - Immunizations Hx Diphtheria, Pertussis, Tetanus Vaccination: No Review of Systems - Review of Systems Constitutional: No symptoms reported EENT: No symptoms reported Cardiovascular: No symptoms reported Respiratory: No symptoms reported Gastrointestinal: Abdominal pain, Diarrhea Genitourinary: No symptoms reported Female Genitourinary: No symptoms reported Musculoskeletal: No symptoms reported Skin: No symptoms reported Hematologic/Lymphatic: No symptoms reported Neurological/Psychological: No symptoms reported -: Yes All other systems reviewed and negative Physical Exam - Vital signs Vitals: Temp Pulse Resp BP Pulse Ox 98.6 F 62 16 142/91 H 96 03/31/18 13:01 03/31/18 13:01 03/31/18 13:01 03/31/18 13:01 03/31/18 13:01 Interpretation: Normal - General General appearance: Appears well, Alert - HEENT Head: Normocephalic, Atraumatic Eyes: Normal Pupils: PERRL - Respiratory Respiratory status: No respiratory distress Chest status: Nontender Breath sounds: Normal Chest palpation: Normal - Cardiovascular Rhythm: Regular Heart sounds: Normal auscultation Murmur: No - Abdominal Inspection: Normal Distension: No distension Bowel sounds: Normal Tenderness: Tender - Lower abdominal tenderness mild to moderate no guarding or rebound Organomegaly: No organomegaly - Back Back: Normal, Nontender - Extremities General upper extremity: Normal inspection, Nontender, Normal color, Normal ROM , Normal temperature General lower extremity: Normal inspection, Nontender, Normal color, Normal ROM , Normal temperature, Normal weight bearing. No: Gurvinder's sign - Neurological Neuro grossly intact: Yes Cognition: Normal Orientation: AAOx4 Varsha Coma Scale Eye Opening: Spontaneous [place] Coma Scale Verbal: Oriented [place] Coma Scale Motor: Obeys Commands Gree[place] Coma Scale Total: 15 Speech: Normal Motor strength normal: LUE, RUE, LLE, RLE Sensory: Normal - Psychological Associated symptoms: Normal affect, Normal mood - Skin Skin Temperature: Warm Skin Moisture: Dry Skin Color: Normal Course - Re-evaluation Re-evalutation: 03/31/18 23:05 Laboratory studies show signs of dehydration with hypernatremia. Patient was given IV fluids here and able to tolerate p.o. Patient CT scan does not reveal any significant pathology for the patient's right lower quadrant abdominal pain. Patient was able to give us a stool sample here which was sent for culture no signs of C. difficile no white blood cells. Review of patient's previous workup showed extensive GI studies with a recent upper GI series showing possible gastritis and ulcer formation patient does not complain of any upper abdominal pain today patient states she was recently had her PPI increased from omeprazole 40 mg daily to 40 mg now twice daily spelled patient went with her study showing gastritis with also recommend Carafate and Reglan for her symptoms have recommended patient continue follow-up with her primary care physician and her GI specialist. The patient presents with abdominal pain without signs of peritonitis or other life-threatening or serious etiology. The patient appears stable for discharge and has been instructed to return immediately if the symptoms worsen in any way, or in 8-12hr if not improved for re-evaluation. The patient has been instructed to return if the symptoms worsen or change in any way. - Vital Signs Vital signs: Temp Pulse Resp BP Pulse Ox 98.2 F 62 20 134/67 H 95 03/31/18 20:34 03/31/18 20:34 03/31/18 20:34 03/31/18 20:34 03/31/18 20:34 - Laboratory Result Diagrams: 03/31/18 15:49 03/31/18 15:49 Laboratory results interpreted by me: 03/31/18 03/31/18 15:49 15:49 WBC 11.7 H MCV 98 H Sodium 150.2 H Chloride 108 H Discharge - Discharge Clinical Impression: Diarrhea Qualifiers: Diarrhea type: unspecified type Qualified Code(s): R19.7 - Diarrhea, unspecified Abdominal pain Qualifiers: Abdominal location: unspecified location Qualified Code(s): R10.9 - Unspecified abdominal pain Condition: Good Disposition: HOME, SELF-CARE Instructions: Abdominal Pain ([facility]), Diarrhea, Nonspecific ([facility]) Additional Instructions: Your CT scan today does not show any acute pathology for your right lower quadrant abdominal pain. We also do not have any etiology for your dark diarrhea. We did send her stool for culture. Will take approximately 48-72 hours for those results. No signs of C. difficile in her stool today. Please make sure you are drinking plenty water would recommend natural remedies for your diarrhea such as increasing her fiber and increasing her yogurt intake. Please follow-up with your doctor seeing her specialist as recommended Prescriptions: Metoclopramide HCl [Reglan] 5 mg PO Q6 #30 tablet Sucralfate [Carafate 1 gm Tablet] 1 gm PO ACHS #120 tablet Referrals: [facility] [NO LOCAL MD] - Follow up in 3-5 days
[2018-03-31 20:39] VITALS: BP 134/67
== END 2018-03-31 20:37 | disposition home or self-care (01) ==
LOC: ER 12:45
DX: R10.31 Right lower quadrant pain (principal); R19.7 Diarrhea, unspecified; J44.9 Chronic obstructive pulmonary disease, unspecified; Z88.6 Allergy status to analgesic agent; Z88.0 Allergy status to penicillin; Z98.51 Tubal ligation status; Z95.1 Presence of aortocoronary bypass graft
CPT/HCPCS: 99284; 36415; 87045; 89055; 87205; 83690; 85025; 80053; 81001; 87493; 71046; 74177; J7120

== ENCOUNTER 2018-04-16 12:35 | Day surgery (SDC) | payer OTHER ==
[~2018-04-16 12:35] MED LIST changes: +FENTANYL CITRATE INJ/PF 100 MCG/2 ML AMPUL ONE
[2018-04-16] MEDS: MIDAZOLAM 2 MG/2 ML INJ ONE ×2 (13:34→13:40)
--- NOTE | 2018-04-16 13:48 | Operative Report ---
Operative Report DATE OF SURGERY: 04/16/18 Operative Report: The risks benefits and alternatives of the procedure explained to the patient in detail and informed consent is obtained.A GIF Olympus video scope was inserted into the patient's mouth and hypopharynx, the esophagus is identified intubated and insufflated, the scope was then advanced through the esophagus stomach and duodenum, retroflexion maneuver is done, the esophagus stomach and first and second portions of the duodenum examined PREOPERATIVE DIAGNOSIS: Epigastric pain, gastroesophageal reflux disease POSTOPERATIVE DIAGNOSIS: Duodenitis status post biopsy rule out celiac disease. Hiatal hernia OPERATION: EGD with biopsy SURGEON: ELVI GLOVER ANESTHESIA: Moderate Sedation - 4 mg of Versed, 25 mcg of fentanyl. Conscious sedation monitoring time 30 minutes. TISSUE REMOVED OR ALTERED: As noted above. COMPLICATIONS: None. ESTIMATED BLOOD LOSS: None. INTRAOPERATIVE FINDINGS: As noted above. PROCEDURE: Patient tolerated procedure well. No immediate postprocedure complications are noted. Patient discharged in good condition. Discharge date 04/16/2018. Discharge diet: Regular. Discharge activity: Regular. 2-3 week follow-up to discuss findings. Patient is instructed to call the office or proceed to the emergency room should there be any further problems or questions. We will wait on pathology.
[2018-04-16 14:47] VITALS: BP 115/74
== END 2018-04-16 14:55 | disposition home or self-care (01) ==
LOC: END 12:35
PROVIDERS: ATTEND Internal Medicine Gastroenterology
DX: K29.80 Duodenitis without bleeding (principal); K44.9 Diaphragmatic hernia without obstruction or gangrene; D64.9 Anemia, unspecified; J45.909 Unspecified asthma, uncomplicated; J43.9 Emphysema, unspecified; F17.210 Nicotine dependence, cigarettes, uncomplicated
CPT/HCPCS: 43239; 88305 ×2; J2250; J3010; J0171; J1200; J1610; J2310; J2405; J3490

== ENCOUNTER 2018-08-08 11:15 | Emergency (ER) | payer OTHER ==
[2018-08-08] MEDS ORDERED: IPRATROPIUM/ALBUTEROL 0.5-2.5 MG/3 ML AMPUL NEB ONE (11:48)
[2018-08-08] MEDS ORDERED: PREDNISONE 20 MG TABLET PO ONE (11:49)
--- NOTE | 2018-08-08 12:13 | ER Document Report ---
ED General - General Chief Complaint: Flu Symptoms Stated Complaint: FLU LIKE SYMPTOMS Time Seen by Provider: 08/08/18 11:43 Notes: Patient is a 62-year-old female with COPD that presents to the emergency department for chief complaint of sinus congestion and cough. Patient states she has had over a week of symptoms of cough, congestion, runny nose, and body aches. Denies any sick contacts. Denies having any chest pain. Cough is mainly been nonproductive, and mildly improved with [id number] severe flu cough syrup that she has been taking. She has had associated diarrhea, and some nausea and vomiting as well this morning so she decided come to the emergency department. She has not received her influenza vaccine this year. She states she has been using her typical medications for her COPD, including the different inhalers, but she has not been using the albuterol as often as she should she should be using this 3 times a day she has been using it once a day. Past Medical History: COPD Past Surgical History: Pilonidal cyst surgery Social History: Admits to smoking cigarettes, denies alcohol or drug use Family History: Reviewed and noncontributory for presenting illness Allergies: Reviewed, see documented allergy list. REVIEW OF SYSTEMS: Unless otherwise stated in this report the patient's positive and negative responses for review of systems for constitutional, eyes, ENT, cardiovascular, respiratory, gastrointestinal, neurological, genitourinary, musculoskeletal, and integumentary systems and related systems to the presenting problem are either as stated in the HPI or were not pertinent or were negative for the symptoms and/or complaints related to the presenting medical problem. PHYSICAL EXAMINATION: Vital signs reviewed, nursing noted reviewed. GENERAL: Well-appearing, well-nourished and in no acute distress. HEAD: Atraumatic, normocephalic. EYES: Eyes appear normal, extraocular movements intact, sclera anicteric, conjunctiva are normal. ENT: nares patent, oropharynx clear without exudates. Moist mucous membranes. NECK: Normal range of motion, supple without lymphadenopathy LUNGS: Patient does have mild wheezing throughout the lung hunt, no acute respiratory distress or increased work of breathing noted HEART: Regular rate and rhythm without murmurs ABDOMEN: Soft, nontender, normoactive bowel sounds. No rebound, guarding, or rigidity. No masses appreciated. EXTREMITIES: Nontender, good range of motion, no pitting or edema. NEUROLOGICAL: No focal neurological deficits. Moves all extremities spontaneously Motor and sensory grossly intact on exam. PSYCH: Normal mood, normal affect. SKIN: Warm, Dry, normal turgor, no rashes or lesions noted on exposed skin TRAVEL OUTSIDE OF THE [place] IN LAST 30 DAYS: No - Related Data Allergies/Adverse Reactions: codeine [Codeine] Allergy (Intermediate, Verified 08/08/18 11:15) PALE, UNABLE TO MOVE hydromorphone HCl [From Dilaudid] Allergy (Intermediate, Verified 08/08/18 11:15 ) nausea and itching Penicillins Allergy (Intermediate, Verified 08/08/18 11:15) NAUSEA, VOMITING Past Medical History - Social History Smoking Status: Current Some Day Smoker Family History: Reviewed & Not Pertinent Patient has suicidal ideation: No Patient has homicidal ideation: No - Past Medical History Cardiac Medical History: Reports: Hx Heart Murmur - HAD ECHO IN THE PAST IN 2013 , EKG OBTAINED 04/2014 Denies: Hx Atrial Fibrillation, Hx Congestive Heart Failure, Hx Coronary Artery Disease, Hx Heart Attack - QUESTIONABLE IRREGULAR HEARTBEAT VS MURMUR, EKG NEG, Hx Hypercholesterolemia, Hx Hypertension, Hx Peripheral Vascular Disease, Hx Pulmonary Embolism Pulmonary Medical History: Reports: Hx Asthma, Hx Bronchitis, Hx COPD Denies: Hx Pneumonia, Hx Respiratory Failure, Hx Sleep Apnea, Hx Tuberculosis Neurological Medical History: Denies: Hx Cerebrovascular Accident, Hx Seizures Renal/ Medical History: Denies: Hx Peritoneal Dialysis Malignancy Medical History: Denies: Hx Leukemia, Hx Lung Cancer GI Medical History: Reports: Hx Gastroesophageal Reflux Disease, Hx Hiatal Hernia - UNSURE. Denies: Hx Crohn's Disease, Hx Hepatitis, Hx Irritable Bowel, Hx Liver Failure, Hx Pancreatitis, Hx Ulcer Musculoskeletal Medical History: Denies Hx Arthritis Psychiatric Medical History: Denies: Hx Depression Infectious Medical History: Denies: Hx Hepatitis, Hx HIV Past Surgical History: Reports: Hx Abdominal Surgery, Hx Bowel Surgery - May 03. See old records., Hx Nose Surgery - Deviated Septum, Hx Tonsillectomy - AGE 13, Other - Right hemicolectomy, Dr. Mendez, 2013: Pilonidal cystectomy: Nasal septum terri. Denies: Hx Appendectomy, Hx Section, Hx Cholecystectomy, Hx Colostomy, Hx Coronary Artery Bypass Graft, Hx Gastric Bypass Surgery, Hx Herniorrhaphy, Hx Hysterectomy, Hx Mastectomy, Hx Open Heart Surgery, Hx Pacemaker, Hx Tubal Ligation - Immunizations Hx Diphtheria, Pertussis, Tetanus Vaccination: No Physical Exam - Vital signs Vitals: Temp Pulse Resp BP Pulse Ox 98.0 F 73 18 144/79 H 96 08/08/18 11:19 08/08/18 11:19 08/08/18 11:19 08/08/18 11:19 08/08/18 11:19 Course - Re-evaluation Re-evalutation: Patient seen and examined vital signs reviewed. Patient was evaluated and treated as appropriate for the patient's presenting symptoms and complaint, with consideration of any critical or life threatening conditions that may be associated with their obtained history and exam as noted above. Patient was treated with albuterol, and prednisone, chest x-ray is obtained and negative for infiltrative pneumonia, or pneumothorax The patient was re-evaluated and was improved Evaluation was most consistent with mild acute COPD exacerbation, and bronchitis , given that the patient's symptoms are nearly 2 weeks, and she is been trying [id number] medications without much improvement, will prescribe the patient doxycycline, in addition to prednisone, and advised to continue her albuterol treatments at least 4 times daily, for the next 3-4 days. And to follow-up with her primary care physician or c developer. Plan of care was discussed with the patient at this point, after careful consideration I feel that that patient can be discharged from the emergency department, the patient was educated treatments and reasons to return to the emergency department based on their presumed diagnosis as noted above, they were advised to followup with a primary care physician in 2-3 days. Patient was agreeable to plan of care. A total of 5 minutes was spent discussing smoking cessation with the patient, as it will only worsen her symptoms, patient was agreeable that she will try to discontinue smoking as soon as possible. *Note is created using voice recognition software and may contain spelling, syntax or grammatical errors. Chest X-Ray 08/08/18 11:48 IMPRESSION: NO ACUTE RADIOGRAPHIC FINDING IN THE CHEST. - Vital Signs Vital signs: Temp Pulse Resp BP Pulse Ox 97.6 F 73 18 119/67 97 08/08/18 12:34 08/08/18 12:34 08/08/18 12:34 08/08/18 12:34 08/08/18 12:34 Discharge - Discharge Clinical Impression: Acute bronchitis Qualifiers: Bronchitis organism: unspecified organism Qualified Code(s): J20.9 - Acute bronchitis, unspecified COPD (chronic obstructive pulmonary disease) Qualifiers: COPD type: unspecified COPD Qualified Code(s): J44.9 - Chronic obstructive pulmonary disease, unspecified Condition: Stable Disposition: ADMITTED INPATIENT Instructions: Bronchitis ([facility]) Additional Instructions: Please return to the emergency department if you have any worsening, or concern of your symptoms. Please return to the emergency department if you develop chest pain, difficulty breathing, severe abdominal pain, or ongoing vomiting. Please follow-up with your primary care physician in 2-3 days and any other recommended physicians. If prescribed, take all medications as directed. If you have any questions or concerns do not hesitate to return the emergency department for evaluation. Prescriptions: Doxycycline Hyclate 100 mg PO BID #14 capsule Prednisone [Deltasone 20 mg Tablet] 2 tab PO DAILY 5 Days #10 tablet Forms: Smoking Cessation Education, Return to Work Referrals: SANDRA ALONZO MD [Primary Care Provider] - Follow up as needed
--- NOTE | 2018-08-08 12:33 | RADIOLOGY REPORT (SQ) ---
EXAM DESCRIPTION: CHEST 2 VIEWS COMPLETED DATE/TIME: 08/08/2018 12:11 pm REASON FOR STUDY: cough COMPARISON: 03/21/2018 and earlier EXAM PARAMETERS: NUMBER OF VIEWS: two views TECHNIQUE: Digital Frontal and Lateral radiographic views of the chest acquired. RADIATION DOSE: NA LIMITATIONS: none FINDINGS: LUNGS AND PLEURA: No opacities, masses or pneumothorax. No pleural effusion. MEDIASTINUM AND HILAR STRUCTURES: No masses or contour abnormalities. HEART AND VASCULAR STRUCTURES: Heart normal size. No evidence for failure. BONES: No acute findings. HARDWARE: None in the chest. OTHER: No other significant finding. IMPRESSION: NO ACUTE RADIOGRAPHIC FINDING IN THE CHEST. TECHNICAL DOCUMENTATION: JOB ID: [id number] [employer]- All Rights Reserved Reading location - IP/workstation name: [email or web address]
[2018-08-08 12:35] VITALS: BP 119/67
== END 2018-08-08 12:50 | disposition home or self-care (01) ==
LOC: ER 11:15
DX: J44.0 Chronic obstructive pulmonary disease with (acute) lower respiratory infection (principal); J20.9 Acute bronchitis, unspecified; T48.6X6A Underdosing of antiasthmatics, initial encounter; Z91.14 Patient's other noncompliance with medication regimen; Z79.899 Other long term (current) drug therapy; R09.81 Nasal congestion; R05 Cough; R19.7 Diarrhea, unspecified; R11.2 Nausea with vomiting, unspecified; F17.210 Nicotine dependence, cigarettes, uncomplicated; Z88.5 Allergy status to narcotic agent; Z88.0 Allergy status to penicillin
CPT/HCPCS: 94640; 99283; 71046; J7512; J7620

== ENCOUNTER → 2018-08-31 | Outpatient (CLI) | payer OTHER ==
[2018-08-31 15:27] LABS: ABSOLUTE EOSINOPHILS # (AUTO) 0.2 10^3/uL (0.0-0.6); ABSOLUTE LYMPHOCYTES (AUTO) 2.5 10^3/uL (0.5-4.7); ABSOLUTE MONOCYTES (AUTO) 0.8 10^3/uL (0.1-1.4); ABSOLUTE NEUT (AUTO) 5.5 10^3/uL (1.7-8.2); BASOPHILS % (AUTO) 0.5 % (0-2); EOSINOPHILS % (AUTO) 2.6 % (0-6); HEMATOCRIT 44.3 % (36.0-47.0); HEMOGLOBIN 15.3 g/dL (12.0-15.5); LYMPHOCYTES % (AUTO) 27.5 % (13-45); MEAN CORPUSCULAR HEMOGLOBIN 33.7 pg (27.0-33.4); MEAN CORPUSCULAR HGB CONC 34.6 g/dL (32.0-36.0); MEAN CORPUSCULAR VOLUME 97 fl (80-97); MONOCYTES % (AUTO) 8.7 % (3-13); PLATELET COUNT 380 10^3/uL (150-450); RED BLOOD COUNT 4.56 10^6/uL (3.72-5.28); RED CELL DISTRIBUTION WIDTH 13.5 % (11.5-14.0); SEGMENTED NEUTROPHILS % (AUTO) 60.7 % (42-78); TOTAL CELLS COUNTED % (AUTO) 100 %
[2018-08-31 15:47] LABS: ANION GAP 11 (5-19); BLOOD UREA NITROGEN 25 mg/dL (7-20); CALCIUM 10.4 mg/dL (8.4-10.2); CARBON DIOXIDE 30 mmol/L (22-30); CHLORIDE 102 mmol/L (98-107); GLUCOSE 98 mg/dL (75-110); SODIUM 143.3 mmol/L (137-145)
[2018-08-31 16:05] LABS: FREE T4 (FREE THYROXINE) 0.79 ng/dL (0.78-2.19)
[2018-08-31 16:12] LABS: ERYTHROCYTE SEDIMENTATION RATE 14 mm/hr (0-30)
[2018-08-31 16:19] LABS: THYROID STIMULATING HORMONE 2.35 uIU/mL (0.47-4.68)
== END ==
LOC: CCC 14:48
DX: R19.7 Diarrhea, unspecified (principal)
CPT/HCPCS: 36415; 80048; 83036; 84439; 84443; 85025; 85652

== ENCOUNTER → 2018-11-02 | Outpatient (CLI) | payer SELFPAY ==
[2018-11-04 14:39] LABS: ANTICHROMATIN AB <0.2 AI (0.0-0.9); CENTROMERE B AB <0.2 AI (0.0-0.9); JO-1 ANTIBODY (ANACOMP) <0.2 AI (0.0-0.9); SJOGREN'S ANTI-SS-B AB <0.2 AI (0.0-0.9); SJOGREN'S SS-A ANTIBODY <0.2 AI (0.0-0.9)
[2018-11-04 16:38] LABS: CYTOPLASMIC (C-ANCA) <1:20 titer (Neg:<1:20)
[2018-11-05 08:15] LABS: ATYPICAL PANCA <1:20 titer (Neg:<1:20); DNA DOUBLE STRAND ANTIBODY ANA 14 IU/mL (0-9); PERINUCLEAR (P-ANCA) <1:20 titer (Neg:<1:20)
== END ==
LOC: OD 14:23
PROVIDERS: ATTEND Internal Medicine Pulmonary Disease
DX: R06.02 Shortness of breath (principal)
CPT/HCPCS: 36415; 86021; 86225; 86235; 86430

== ENCOUNTER → 2018-12-01 | Outpatient (CLI) | payer OTHER ==
[2018-12-01 17:00] LABS: ABSOLUTE BASOPHILS # (AUTO) 0.1 10^3/uL (0.0-0.2); ABSOLUTE MONOCYTES (AUTO) 0.2 10^3/uL (0.1-1.4); ABSOLUTE NEUT (AUTO) 11.9 10^3/uL (1.7-8.2); BASOPHILS % (AUTO) 0.8 % (0-2); HEMATOCRIT 41.8 % (36.0-47.0); HEMOGLOBIN 14.4 g/dL (12.0-15.5); LYMPHOCYTES % (AUTO) 7.9 % (13-45); MEAN CORPUSCULAR HEMOGLOBIN 33.4 pg (27.0-33.4); MEAN CORPUSCULAR HGB CONC 34.4 g/dL (32.0-36.0); MEAN CORPUSCULAR VOLUME 97 fl (80-97); MONOCYTES % (AUTO) 1.6 % (3-13); PLATELET COUNT 438 10^3/uL (150-450); RED BLOOD COUNT 4.31 10^6/uL (3.72-5.28); RED CELL DISTRIBUTION WIDTH 13.4 % (11.5-14.0); SEGMENTED NEUTROPHILS % (AUTO) 89.7 % (42-78); TOTAL CELLS COUNTED % (AUTO) 100 %; WHITE BLOOD COUNT 13.2 10^3/uL (4.0-10.5)
[2018-12-01 17:32] LABS: ALANINE AMINOTRANSFERASE 24 U/L (9-52); ALBUMIN 4.7 g/dL (3.5-5.0); ALKALINE PHOSPHATASE 78 U/L (38-126); ANION GAP 12 (5-19); ASPARTATE AMINO TRANSFERASE 24 U/L (14-36); BILIRUBIN,DIRECT 0.3 mg/dL (0.0-0.4); BILIRUBIN,TOTAL 0.4 mg/dL (0.2-1.3); BLOOD UREA NITROGEN 17 mg/dL (7-20); CARBON DIOXIDE 25 mmol/L (22-30); CHLORIDE 106 mmol/L (98-107); GLUCOSE 241 mg/dL (75-110); POTASSIUM 4.7 mmol/L (3.6-5.0); SODIUM 142.8 mmol/L (137-145)
[2018-12-01 17:41] LABS: ERYTHROCYTE SEDIMENTATION RATE 8 mm/hr (0-30)
== END ==
LOC: CCC 16:05
DX: J44.1 Chronic obstructive pulmonary disease with (acute) exacerbation (principal); R69 Illness, unspecified; R06.02 Shortness of breath
CPT/HCPCS: 36415; 80053; 82330; 85025; 85652

== ENCOUNTER → 2018-12-07 | Outpatient (CLI) | payer OTHER ==
--- NOTE | 2018-12-07 13:12 | RADIOLOGY REPORT (SQ) ---
EXAM DESCRIPTION: CHEST PA/LATERAL COMPLETED DATE/TIME: 12/07/2018 12:59 pm REASON FOR STUDY: COUGH;PNEUMONIA; FEVER COMPARISON: Two-view chest 08/08/2018 EXAM PARAMETERS: NUMBER OF VIEWS: two views TECHNIQUE: Digital Frontal and Lateral radiographic views of the chest acquired. RADIATION DOSE: NA LIMITATIONS: none FINDINGS: LUNGS AND PLEURA: No opacities, masses or pneumothorax. No pleural effusion. MEDIASTINUM AND HILAR STRUCTURES: No masses or contour abnormalities. HEART AND VASCULAR STRUCTURES: Heart normal size. No evidence for failure. BONES: No acute findings. HARDWARE: None in the chest. OTHER: No other significant finding. IMPRESSION: NO SIGNIFICANT RADIOGRAPHIC FINDING IN THE CHEST. TECHNICAL DOCUMENTATION: JOB ID: [id number] [employer]- All Rights Reserved Reading location - IP/workstation name: [email or web address]
== END ==
LOC: OD 12:45
DX: J18.9 Pneumonia, unspecified organism (principal); R05 Cough
CPT/HCPCS: 71046

== ENCOUNTER → 2019-01-12 | Outpatient (CLI) | payer OTHER ==
[~2019-01-12] MED LIST changes: +ALBUTEROL SULFATE 0.083% NEB 2.5 MG/3 ML AMPUL NEB ONE; -DIPHENHYDRAMINE HCL 50 MG/ML VIAL ONE; -EPINEPHRINE INJ 1 MG/10 ML DISP.SYRIN ONE; -FENTANYL CITRATE INJ/PF 100 MCG/2 ML AMPUL ONE; -FLUMAZENIL INJ 0.5 MG/5 ML VIAL ONE; -GLUCAGON,HUMAN RECOMB 1 MG INJ ONE; -NALOXONE HCL INJ/PF 0.4 MG/1 ML SDV ONE; -ONDANSETRON HCL INJ/PF 4 MG/2 ML SDV ONE
--- NOTE | 2019-01-13 15:48 | Pulmonary Function Test ---
Pulmonary Function Test Date of Procedure:: 01/12/19 INDICATION:: Dyspnea Referring Provider: Dr. Francis Nuno Mattress Renovator: Rebeca Tejada [employer] - Report Spirometry: FVC 3.28 L 106% postbronchodilator 2.94 L 95% FEV1 1.33 L 54% postbronchodilator 1.35 L 54% FEV1/FVC % 41 postbronchodilator 46 predicted 82 FEF 25-75% 0.29 L 11% postbronchodilator 0.31 L 12% Lung Volume: Total lung capacity 4.24 L 83% Vital capacity 3.28 L 106% Inspiratory capacity 1.95 L FRC N2.28 L 77% ERV 0.32 L RV 0.96 L 49% RV/TLC % 23 predicted 38 Diffusion Capactity: Diffusion capacity 13.1 67% DLCO/VA 2.56 66% Impression: Severe obstructive ventilatory defect with insignificant response to bronchodilator therapy. This in and of itself does not preclude a clinical trial of bronchodilator therapy. No restrictive ventilatory defect. No hyperinflation or air trapping. Mild decrease in diffusion capacity.
== END ==
LOC: RT 08:14
PROVIDERS: ATTEND Family Medicine
DX: J44.9 Chronic obstructive pulmonary disease, unspecified (principal); R06.00 Dyspnea, unspecified
CPT/HCPCS: 94060; 94727; 94729

== ENCOUNTER → 2019-02-17 | Outpatient (CLI) | payer OTHER ==
--- NOTE | 2019-02-17 15:48 | RADIOLOGY REPORT (SQ) ---
EXAM DESCRIPTION: CT CHEST WITHOUT COMPLETED DATE/TIME: 02/17/2019 3:14 pm REASON FOR STUDY: R91.1 SOLITARY PULMONARY NODULE R91.1 SOLITARY PULMONARY NODULE COMPARISON: 03/12/2018 TECHNIQUE: CT scan performed of the chest without intravenous contrast. Images reviewed with lung, soft tissue and bone windows. Reconstructed coronal and sagittal MPR images reviewed. All images st ored on PACS. All CT scanners at this facility use dose modulation, iterative reconstruction, and/or weight based d osing when appropriate to reduce radiation dose to as low as reasonably achievable (ALARA). [facility]: Dose Right [facility]: CareDose [facility]: Dose Right [facility]: Teradose 4D [facility]: Movile RADIATION DOSE: CT Rad equipment meets quality standard of care and radiation dose reduction techniq ues were employed. CTDIvol: 4.3 mGy. DLP: 158 mGy-cm. mGy. LIMITATIONS: No technical limitations. FINDINGS: LUNGS AND PLEURA: Stable emphysematous change with apical paraseptal blebs. Scattered sub 4 mm pulmonary nodules, stable. Mild linear consolidation within the anterior right upper lobe, lik love scarring or atelectasis. No focal airspace disease, pleural effusion or pneumothorax. No new chang spicious nodules or masses. HILAR AND MEDIASTINAL STRUCTURES: No identified masses or abnormal nodes. No obvious aneurysm. HEART AND VASCULAR STRUCTURES: No aneurysm. No pericardial effusion. UPPER ABDOMEN: No significant findings. Limited exam. THYROID AND OTHER SOFT TISSUES: No masses. No adenopathy. BONES: No significant finding. HARDWARE: None in the chest. OTHER: No other significant findings. IMPRESSION: 1. No evidence of acute cardiopulmonary process. 2. Stable emphysematous and chronic interstitial changes without new suspicious nodules or masses. TECHNICAL DOCUMENTATION: JOB ID: [id number] Quality ID # [id number]: Final reports with documentation of one or more dose reduction techniques (e.g., Au tomated exposure control, adjustment of the mA and/or kV according to patient size, use of iterative reconstruction technique) 2010 [employer]- All Rights Reserved Reading location - IP/workstation name: [email or web address]-
== END ==
LOC: RAD 14:55
PROVIDERS: ATTEND Internal Medicine Critical Care Medicine
DX: R91.1 Solitary pulmonary nodule (principal)
CPT/HCPCS: 71250

== ENCOUNTER 2020-09-26 07:44 | Day surgery (SDC) | payer MEDICARE, MEDICAID ==
[~2020-09-26 07:44] MED LIST changes: -ALBUTEROL SULFATE 0.083% NEB 2.5 MG/3 ML AMPUL NEB ONE; +BUPIVACAINE HCL 0.75% INJ/PF (7.5 MG/1 ML) 10 ML SDV OD PRN; +FENTANYL CITRATE INJ/PF 100 MCG/2 ML AMPUL ONE; +KETOROLAC TROMETHAMINE 0.45% 4 DROP/0.4 ML DROPERETTE OD PRN; +LIDOCAINE 4% INJ/PF (40 MG/ML) 5 ML AMPUL OD PRN; +MIDAZOLAM 2 MG/2 ML INJ ONE; +ONDANSETRON HCL INJ/PF 4 MG/2 ML SDV ONE
[2020-09-26] MEDS ORDERED: EPINEPHRINE INJ/PF 1 MG/1 ML AMPULE ONE (07:48)
[2020-09-26] MEDS ORDERED: LIDOCAINE 1% INJ-PF (10 MG/ML) 30 ML SDV ONE (07:48)
[2020-09-26] MEDS ORDERED: CHONDR SU A NA/HYALUR INTRAOC KIT (SURGICARE) ONE (07:48)
[2020-09-26] MEDS: TROPICAMIDE 1% OPH SOLN 15 ML OD PRN ×3 (08:05→08:30)
[2020-09-26] MEDS: CYCLOPENTOLATE 0.2%/PHENYLEPHRINE 1% OPH SOLN 2 ML OD PRN ×3 (08:05→08:30)
[2020-09-26] MEDS: TETRACAINE HCL 0.5% OPH SOLN 4 ML OD PRN ×3 (08:05→08:49)
[2020-09-26] MEDS: BESIFLOXACIN HCL 0.6% OPH SUSP 5 ML BOTTLE OD PRN ×4 (08:05→09:12)
[2020-09-26] MEDS ORDERED: MIDAZOLAM 2 MG/2 ML INJ ONE (08:34)
[2020-09-26] MEDS: DORZOLAMIDE HCL 2%/TIMOLOL MALEAT 0.5% OPH SOLN 10 ML OD PRN ×2 (09:05→09:12)
[2020-09-26] MEDS: PREDNISOLONE ACETATE 1% OPH SUSP 5 ML OD PRN ×2 (09:05→09:12)
--- NOTE | 2020-09-26 10:34 | Operative Report ---
Operative Report-[facility] Operative Report: DATE OF SURGERY: 09/26/2020 PREOPERATIVE DIAGNOSIS: CATARACT, RIGHT EYE. POSTOPERATIVE DIAGNOSIS: CATARACT, RIGHT EYE. PROCEDURE PERFORMED: PHACOEMULSIFICATION WITH POSTERIOR CHAMBER INTRAOCULAR LENS, RIGHT EYE. Intraocular Lens Model : DC leslie 24.0 Total Phaco Time: 37 seconds SURGEON: IRAIDA PEARSON MD ANESTHESIA: TOPICAL WITH MAC. INDICATIONS FOR SURGERY: Difficulty reading road signs and small print. PROCEDURE: The patient was brought to the Operating Room and placed on the operative table. Following tetracaine drops, topical anesthesia was administered. This consisted of instrument wipe pledgets soaked in a solution of 4% Xylocaine mixed with 0.75% Marcaine in a 1:2 ratio. A 2 x 1 cm pledget was placed in the superior fornix. A 1 x 1 cm pledget was placed in the inferior fornix. The eye was patched shut for 5 minutes. The patch was removed. The eye was sterilely prepped and draped in the usual manner. Lid speculum was placed in the eye. The pledgets were removed. 4-0 black silk sutures were placed around the superior and the inferior rectus muscles to be used as traction. A conjunctival peritomy was made at the 10 o'clock position. Hemostasis was obtained with bipolar cautery. A posterior limbal groove was created using a crescent knife and dissected anteriorly towards the cornea. A sharp point blade was used to create a paracentesis site at the 2 o'clock position. 0.2 cc non preserved Lidocaine was injected into the anterior chamber. A 2.4 mm keratome was used to enter the anterior chamber through the groove. Viscoelastic was injected into the anterior chamber. An anterior capsulotomy was performed using Utrata forceps in a capsulorrhexis fashion. Hydrodissection and hydrodelineation were performed. Phacoemulsification was performed in [id number] technique. Following this, the I/A unit was used to remove residual cortex. Viscoelastic was injected into the capsular bag. The Intraocular lens was placed in the capsular bag. The I/A unit was used to remove residual viscoelastic. The wound was seen to be watertight under high and low pressure, and no sutures were placed. The intraocular lens was well centered. The pressure was adjusted in the eye to normal pressure. The 4-0 black silk sutures and lid speculum were removed. The eye was shielded after Besivance. prednisolone, and Cosopt drops were placed. The patient tolerated the procedure well and was sent to the Recovery Room in good condition.
== END 2020-09-26 09:48 | disposition home or self-care (01) ==
LOC: SC 07:44
PROVIDERS: ATTEND Ophthalmology
DX: H25.811 Combined forms of age-related cataract, right eye (principal); H57.02 Anisocoria; H50.15 Alternating exotropia; H53.59 Other color vision deficiencies; H52.4 Presbyopia; F17.210 Nicotine dependence, cigarettes, uncomplicated; J44.9 Chronic obstructive pulmonary disease, unspecified; K21.9 Gastro-esophageal reflux disease without esophagitis
CPT/HCPCS: 66984; V2632; J2250; J3490 ×5; A9270; J0171; 142; J2405; J3010

== ENCOUNTER 2020-10-17 07:26 | Day surgery (SDC) | payer MEDICARE, MEDICAID ==
[~2020-10-17 07:26] MED LIST changes: -BUPIVACAINE HCL 0.75% INJ/PF (7.5 MG/1 ML) 10 ML SDV OD PRN; +BUPIVACAINE HCL 0.75% INJ/PF (7.5 MG/1 ML) 10 ML SDV OS PRN; +CHONDR SU A NA/HYALUR INTRAOC KIT (SURGICARE) ONE; +DORZOLAMIDE HCL 2%/TIMOLOL MALEAT 0.5% OPH SOLN 10 ML OS PRN; +EPINEPHRINE INJ/PF 1 MG/1 ML AMPULE ONE; -KETOROLAC TROMETHAMINE 0.45% 4 DROP/0.4 ML DROPERETTE OD PRN; +KETOROLAC TROMETHAMINE 0.45% 4 DROP/0.4 ML DROPERETTE OS PRN; +LIDOCAINE 1% INJ-PF (10 MG/ML) 30 ML SDV ONE; -LIDOCAINE 4% INJ/PF (40 MG/ML) 5 ML AMPUL OD PRN; +LIDOCAINE 4% INJ/PF (40 MG/ML) 5 ML AMPUL OS PRN; +PREDNISOLONE ACETATE 1% OPH SUSP 5 ML OS PRN
[2020-10-17] MEDS: TETRACAINE HCL 0.5% OPH SOLN 4 ML OS PRN ×3 (07:39→08:25)
[2020-10-17] MEDS: TROPICAMIDE 1% OPH SOLN 15 ML OS PRN ×3 (07:40→08:01)
[2020-10-17] MEDS: CYCLOPENTOLATE 0.2%/PHENYLEPHRINE 1% OPH SOLN 2 ML OS PRN ×3 (07:40→08:01)
[2020-10-17] MEDS: BESIFLOXACIN HCL 0.6% OPH SUSP 5 ML BOTTLE OS PRN ×3 (07:40→08:48)
--- NOTE | 2020-10-17 12:36 | Operative Report ---
Operative Report-[facility] Operative Report: DATE OF SURGERY: October 17, 2020 PREOPERATIVE DIAGNOSIS: CATARACT, LEFT EYE. POSTOPERATIVE DIAGNOSIS: CATARACT, LEFT EYE. PROCEDURE PERFORMED: PHACOEMULSIFICATION WITH POSTERIOR CHAMBER INTRAOCULAR LENS, LEFT EYE. Intraocular Lens Model : DC leslie 24.0 Total Phaco Time: 5.18 CDE SURGEON: IRAIDA PEARSON MD ANESTHESIA: TOPICAL WITH MAC. INDICATIONS FOR SURGERY: Difficultly driving at night PROCEDURE: The patient was brought to the Operating Room and placed on the operative table. Following tetracaine drops, topical anesthesia was administered. This consisted of instrument wipe pledgets soaked in a solution of 4% Xylocaine mixed with 0.75% Marcaine in a 1:2 ratio. A 2 x 1 cm pledget was placed in the superior fornix. A 1 x 1 cm pledget was placed in the inferior fornix. The eye was patched shut for 5 minutes. The patch was removed. The eye was sterilely prepped and draped in the usual manner. Lid speculum was placed in the eye. The pledgets were removed. 4-0 black silk sutures were placed around the superior and the inferior rectus muscles to be used as traction. A conjunctival peritomy was made at the 10 o'clock position. Hemostasis was obtained with bipolar cautery. A posterior limbal groove was created using a crescent knife and dissected anteriorly towards the cornea. A sharp point blade was used to create a paracentesis site at the 2 o'clock position. 0.2 cc non preserved Lidocaine was injected into the anterior chamber. A 2.4 mm keratome was used to enter the anterior chamber through the groove. Viscoelastic was injected into the anterior chamber. An anterior capsulotomy was performed using Utrata forceps in a capsulorrhexis fashion. Hydrodissection and hydrodelineation were performed. Phacoemulsification was performed in [id number] technique. Following this, the I/A unit was used to remove residual cortex. Viscoelastic was injected into the capsular bag. The Intraocular lens was placed in the capsular bag. The I/A unit was used to remove residual viscoelastic. The wound was seen to be watertight under high and low pressure, and no sutures were placed. The intraocular lens was well centered. The pressure was adjusted in the eye to normal pressure. The 4-0 black silk sutures and lid speculum were removed. The eye was shielded after Besivance,prednisolone, and Cosopt drops were placed. The patient tolerated the procedure well and was sent to the Recovery Room in good condition.
== END 2020-10-17 09:25 | disposition home or self-care (01) ==
LOC: SC 07:26
PROVIDERS: ATTEND Ophthalmology
DX: H25.812 Combined forms of age-related cataract, left eye (principal); Z96.1 Presence of intraocular lens; J44.9 Chronic obstructive pulmonary disease, unspecified; K21.9 Gastro-esophageal reflux disease without esophagitis; F17.210 Nicotine dependence, cigarettes, uncomplicated
CPT/HCPCS: 66984; V2632; J2250; J3490 ×5; A9270; J0171; J3010; J2405